=== PATIENT | male | born 1960 | race Caucasian/White ===

== ENCOUNTER 2017-03-23 12:51 | Inpatient (IN) ==
--- NOTE | 2017-03-23 13:42 | EKG Report ---
Stationary ECG Study [facility] Test Date: 03/23/2017 1:42:14 PM Pat Name: HEATHER YORK Department: Room: Gender: M [employer]: : 1960 Requested by: Hector Vogel Order Number: [id number] Reading MD: GRETCHEN OHARA Intervals [place] Rate: 79 P: 999 WI: 0 QRS: 263 QRSD: 161 T: 40 QT: 418 QTc: 453 Interpretive Statements ATRIAL FIBRILLATION WITH ABERRANT CONDUCTION OR VENTRICULAR PREMATURE COMPLEXES RIGHT BUNDLE BRANCH BLOCK INFERIOR MYOCARDIAL INFARCTION, POSSIBLY ACUTE ANTEROLATERAL MYOCARDIAL INFARCTION, OF INDETERMINATE AGE Electronically Signed On 03-25-17 21:33:19 CDT by GRETCHEN OHARA [email or web address]
[2017-03-23 13:56] LABS: ABG Base Excess 1.2 MMOL/L (-2.5-2.5); ABG HCO3 25.5 MMOL/L (20-26); ABG Oxygen Saturation 97.3 % (95-100); ABG PCO2 46.2 MM HG (35-48); ABG PH 7.378 (7.35-7.45); ABG PO2 89.8 MM HG (80-95); ABG TCO2 22.4 MMOL/L (23-27); Allen Test Positive
[2017-03-23 14:01] LABS: Basophils % 0.5 % (0.0-0.8); Eosinophils # 0.1 10*3/uL (0.0-0.87); Eosinophils % 1.4 % (0.00-10.9); Hematocrit 51.8 VOL% (42.0-52.0); Hemoglobin 17.5 GM/DL (14.0-18.0); Immature Granulocytes % 0.4 %; Immature Granulocytes Absolute 0.02 #; Lymphocytes # 1.1 10*3/uL (1.4-4.0); Lymphocytes % 19.1 % (21.2-54.2); Mean Corpuscular HGB Conc 33.8 GM/DL (32-36); Mean Corpuscular Hemoglobin 31 PG (27-34); Mean Platelet Volume 10.4 FL (9.6-12.0); Monocytes # 0.4 10*3/uL (0.11-0.8); Monocytes % 7.4 % (1.7-12.7); Neutrophils # 4.1 10*3/uL (1.4-7.4); Neutrophils % 71.2 % (38.7-73.9); Platelet Count 153 T/CUMM (130-400); Red Blood Count 5.69 MC/CUMM (3.8-5.5); Red Cell Distribution Width 14.9 % (9.3-17.3); White Blood Count 5.7 T/CUMM (4-12)
[2017-03-23 14:12] LABS: INR 1.3; PT Patient Result 14.2 SECS; Partial Thromboplastin Time 32.7 SECS (0-40)
[2017-03-23 14:21] LABS: Albumin 2.8 G/DL (3.4-5.0); Bilirubin,Total 1.4 MG/DL (0.2-1.0); Calcium 8.7 MG/DL (8.5-10.1); Osmolality,Calculated 278.8 MOS/KG (273-304); Total Protein 6.8 G/DL (6.4-8.3)
--- NOTE | 2017-03-23 14:30 | XRay Report ---
Referring Physician: Hector Vogel Exam: XR chest 1V portable Date: March 23, 2017 at 1:45 PM Reason: Shortness of breath Comparison: None Findings: The cardiac silhouette is mildly enlarged. The interstitial markings are diffusely prominent, and there are scattered opacities within both lower lung zones, mainly on the right. This is concerning for pulmonary edema and atelectasis, but pneumonia is not excluded. Follow-up is recommended to confirm resolution since the opacities in the right infrahilar region have a rounded appearance. No pneumothorax is identified, but there is mild right pleural fluid. No acute osseous process is seen. Impression: 1. Mild cardiomegaly. 2. The interstitial markings are prominent bilaterally, and there are scattered opacities within both lower lung zones, mainly on the right. This is concerning for pulmonary edema and atelectasis, but there could also be pneumonia. Follow-up is recommended to confirm resolution since the opacities in the right infrahilar region have a rounded appearance. 3. Mild right pleural fluid. PROCEDURE INTERPRETED AT [facility] DEPARTMENT OF RADIOLOGY Final Report Signed by: Dr. Citlaly Ruano
[2017-03-23 14:36] LABS: Troponin I Only 0.069 NG/ML (0.00-0.045)
--- NOTE | 2017-03-23 15:05 | Emergency Department Note ---
Viet Pedraza Brooke, am scribing for, and in the presence of, Hector Vogel Jr., MD 13:21. Lela Pedraza Marvin Jr., MD, personally performed the services described in this documentation, ascribed by Eden Llanos in my presence, and it is both accurate and complete . Arrival - Arrival Chief Complaint: Shortness of Breath ED Nursing Triage Note: pt had a blood sugar of 40 this am and o2 sats in the 80s. pt now has bs of 141 Mode of Arrival: Stretcher Limitations: No Limitations Source: Patient, Family (Brother and [id number]), EMS, Old Records Reviewed ( Patient says he has a history of chronic lung disease and is not on oxygen. I searched for but could not find any old records.), RN Notes Reviewed Time Seen by Provider: 03/23/17 13:12 - History of Present Illness HPI Narrative: Patient is a 57 year old male who presents to the ED with c/o generalized weakness due to low blood sugar. He says he drank a coke and ate a candy bar because he could tell it was his sugar. Patient says he was feeling so bad that he called EMS. When they arrived, he said they took his blood sugar and it was 45. He says EMS did give him fluids. Upon arrival, his ED was 141. Patient says he has been having problems, for the past month, with his blood sugar dropping. Family confirms that his blood sugar has been a problem. He does not have a local doctor that he follows up with. Patient has history of CHF and says his chest is currently tight. He denies having any shortness of breath. Patient also has PMHx of HTN and NIDDM. Allergies/Adverse Reactions: Allergies Allergy/AdvReac Type Severity Reaction Status Date / Time Sulfa (Sulfonamide Allergy Unknown/Unable Verified 03/23/17 13:03 Antibiotics) to obtain Review of System - Review of System 12 point system: reviewed and no additional remarkable complaints except as stated - Review of System Constitutional: Absent: fever Respiratory: Absent: respiratory distress Cardiovascular: Present: chest pain (tight) Skin: Absent: rash Neurological: Present: weakness (generalized) Endocrine: Present: other (hypoglycemia) Medical,Surgical,& Family Hx - Medical History Cardio: History of: CHF, Hypertension Endocrine: History of: Diabetes Mellitus (NIDDM) - Social History Smoking Status: Never smoker Frequency of Alcohol Use: None Type of Drug Use: None Exam Physical Examination: General: Well-developed well-nourished, no apparent distress. Noted vital signs including a pulse ox of 89% while patient is on oxygen. Head: Normocephalic, atraumatic. Eyes: PERRLA, EOMI. Nose: No obvious acute deformities or discharge. Mouth: No obvious acute injury. Neck: Full range of motion without obvious pain. No midline tender to palpation. Lymphatic: no significant lymphadenopathy noted. Lungs: Clear to auscultation bilaterally, normal and equal air movement bilaterally, no obvious rales or wheezing. Heart: regular rate and rhythm, no obvious mummers. Abdomen: Soft nontender, nondistended, normal active bowel sounds. Skin: Skin erythema consistent with chronic peripheral vascular disease on left leg. Musculoskeletal: No gross deformities. Right BKA noted Neurological: No focal findings, cranial nerves II through XII grossly normal. Psychiatric: Appropriate mood.. : Deferred Vital Signs: Vital Signs Temperature 97.2 F L 03/23/17 12:58 Pulse Rate 76 03/23/17 14:30 Respiratory Rate 22 03/23/17 14:30 Blood Pressure 157/101 03/23/17 14:30 O2 Sat by Pulse Oximetry 99 03/23/17 14:30 Course Course Narrative: Differential diagnosis, hypoglycemia secondary to not eating this morning and still taking insulin. Patient said he only had one glass of orange juice this morning. The hypoxemia is more concerning. Patient says he has a history of chronic lung disease and his O2 sat is usually in the low 90s. He has never been on home oxygen. He lives in [place] and most of the workup has been done there. - Reevaluation(s) Reevaluation #1: Troponin is slightly elevated, 0.069. I called Dr. Murguia back and explained the whole scenario and he says he feels this is probably incidental. He would recommend admitting to the hospitalist and consult him. I then call the hospitalist and they accept admission. Time: 14:55 Results - Labs CBC & BMP: 03/23/17 13:37 03/23/17 13:37 Lab Results: I have reviewed the patients labs Labs: Laboratory Tests 03/23/17 03/23/17 13:37 13:43 WBC 5.7 RBC 5.69 H Hgb 17.5 Hct 51.8 MCV 91.0 MCH 31 MCHC 33.8 RDW 14.9 Plt Count 153 MPV 10.4 Neut % (Auto) 71.2 Lymph % (Auto) 19.1 L Moca % (Auto) 7.4 Eos % (Auto) 1.4 Baso % (Auto) 0.5 Neut # (Auto) 4.1 Lymph # (Auto) 1.1 L Moca # (Auto) 0.4 Eos # (Auto) 0.1 Baso # (Auto) 0.0 Immature Gran % 0.4 Nucleated RBC % 0.0 Immature Gran # 0.02 Nucleated RBCs # 0.00 ABG pH 7.378 ABG pCO2 46.2 ABG pO2 89.8 ABG HCO3 25.5 ABG Total CO2 22.4 L ABG O2 Saturation 97.3 ABG Base Excess 1.2 FiO2 28.00 Laboratory Tests 03/23/17 13:37 INR 1.3 PT Patient/Control Mix 14.2 Circ Anticoag PTT 32.7 Laboratory Tests 03/23/17 13:37 Sodium 137 Potassium 4.0 Chloride 98 Carbon Dioxide 31 Anion Gap 12.0 BUN 29 H Creatinine 1.70 H GFR Calculation 60 BUN/Creatinine Ratio 17.00 Glucose 90 Calculated Osmolality 278.8 Calcium 8.7 Total Bilirubin 1.40 H AST 22 ALT 17 Alkaline Phosphatase 160 H Troponin I 0.069 H Total Protein 6.8 Albumin 2.8 L Globulin 4.0 H Albumin/Globulin Ratio 0.7 L - EKG EKG results: interpreted by [facility] (Heart rate 79, wide-complex QRS complex consistent with right bundle branch block, elevated AST levels in V4 5 and 6. However the right bundle branch block makes is difficult to interpret. No obvious reciprocal ST depressions. I did text a copy of this to Dr. Murguia who agrees with this interpretation. He feels that it is not an acute UT unless patient is very symptomatic. I told him the signs and symptoms of this patient and he agrees acute UT is very low probability.) - Diagnostic Findings Procedure: Chest x-ray: report reviewed by me, image reviewed by me (1. Mild cardiomegaly. 2. The interstitial markings are prominent bilaterally, and there are scattered opacities within both lower lung zones, mainly on the right. This is concerning for pulmonary edema and atelectasis, but there could be pneumonia. Follow up is recommended to confirm resolution since the opacities in the right infrahilar region have a rounded appearance. 3. Mild right pleural fluid.) Disposition Clinical Impression: Hypoglycemia, Diabetes, Congestive heart failure, History of hypertension, Elevated troponin, Hypoxemia, Chronic lung disease Case discussed with: patient, patient's family Disposition: Still a Patient Condition: Stable Time of Disposition: 15:04
[2017-03-23] MEDS ORDERED: DOCUSATE SODIUM 100 MG CAPSULE PO PRN (15:54)
[2017-03-23] MEDS ORDERED: GLUCAGON 1 MG VIAL IM PRN ×2 (15:54→15:56)
[2017-03-23] MEDS ORDERED: ONDANSETRON 4 MG/2 ML VIAL IV PRN (15:54)
[2017-03-23] MEDS ORDERED: DEXTROSE 50% 25 GM/50 ML VIAL IV PRN ×2 (15:54→15:56)
[2017-03-23] MEDS ORDERED: ACETAMINOPHEN 325 MG TABLET PO PRN (15:54)
--- NOTE | 2017-03-23 16:26 | Hospitalist History & Physical ---
Assessment and Plan (1) Congestive heart failure Status: Acute Assessment and plan: We will gently diurese and obtain BNP. We will obtain ECHO in AM. Recheck labs in AM. Current Visit: Yes (2) Diabetes Status: Acute Assessment and plan: Will obtain HGA1C, start accuhecks with ss coverage, and consult diabetic educator. Current Visit: Yes (3) Elevated troponin Status: Acute Assessment and plan: Will obtain serial troponins; if positive will consult cardiology. Will obtain echo and lipid panel in AM. Current Visit: Yes History of Present Illness Chief complaint: Chest pain/shortness of breath/hypoglycemia History of present illness: This a very poor and unfortunate 57 year old male that presented to the ED at [facility] per EMS for evaluation of shortness of breath, chest pain, and hypoglycemia. The patient has a rather impressive medical history of congestive heart failure, diabetes mellitus, and chronic lung disease. He reports an onset generalized weakness that he attributed to a "low blood sugar". He ate a candy bar and drank a soft drink with no improvement. He proceeded to call EMS for further evaluation. Upon EMS arrival, his blood sugar was noted at 40. He was given fluids and IV dextrose; and his blood sugar improved to 141 at the time of arrival. The patient reports problems similar in nature in the past and reports no current PCP. At the time of ED presentation; labs were obtained which reported a BUN at 29, creatinine at 1.70, bilirubin at 1.48, alkaline phosphate 1.60. Cardiac enzymes were obtained which were mildly elevated at 0.069. EKG was postitive for right bundle branch block with elevated AST levels in V4 5 and 6. Cardiology was contacted for review and they determined that the probability for acute PA was low since the patient was asymptomatic. Chest radiograph was obtained; which was significant for mild cardiomegaly; The interstitial markings are prominent bilaterally, scattered opacities within both lower lung zones, mainly on the right. This raised concern for pulmonary edema and atelectasis, but there could be pneumonia and mild right pleural fluid. After discussion with both Dr. Vogel and Dr. Rm, the patient will be admitted to the hospitalist service. Home Medications Medication Instructions Recorded Confirmed Type Aspirin EC Tab 81 mg PO DAILY 03/23/17 03/23/17 History Carvedilol 12.5 mg PO BID 03/23/17 03/23/17 History Digoxin Tab [Lanoxin Tab] 0.25 mg PO SUMOWETHFRSA 03/23/17 03/23/17 History Digoxin Tab [Lanoxin Tab] 0.5 mg PO TU 03/23/17 03/23/17 History Furosemide Tab [Lasix Tab] 80 mg PO BID DIURETIC 03/23/17 03/23/17 History Insulin Aspart Prot/Insuln Asp 42 unit SUBCUT 0800,1600 03/23/17 03/23/17 History [NovoLOG Mix 70-30 FlexPen] Allergies Allergy/AdvReac Type Severity Reaction Status Date / Time Sulfa (Sulfonamide Allergy Unknown/Unable Verified 03/23/17 13:03 Antibiotics) to obtain Medical,Surgical,& Family Hx - Medical History Cardio: History of: CHF, Hypertension Endocrine: History of: Diabetes Mellitus (NIDDM) - Social History Smoking Status: Never smoker Frequency of Alcohol Use: None Type of Drug Use: None 12 point system: reviewed and no additional remarkable complaints except as stated Exam - Constitutional Vitals: Period Temp Pulse Resp BP Sys/Jane Pulse Ox Last 24 Hr 97.2 F-97.2 F 73-94 10-22 117-157/78-101 89-100 General appearance: normal weight, no acute distress - Head Head exam: Present: normal inspection, normocephalic, atraumatic - Eye Eye exam: Present: EOMI. Absent: conjunctival injection, nystagmus Pupils: Present: YU, normal accommodation - ENT ENT exam: Present: normal exam, normal external ear exam, normal oropharynx - Neck Neck exam: Present: normal inspection. Absent: lymphadenopathy, meningismus, tenderness, thyromegaly - Respiratory Respiratory exam: Present: decreased breath sounds. Absent: rales, rhonchi, stridor, wheezes - Cardiovascular Cardiovascular exam: Present: bradycardia, other (R BBB). Absent: carotid bruit , gallop, JVD, rubs, systolic murmur - GI/Abdominal GI/Abdominal exam: Present: normal bowel sounds, soft. Absent: distended, guarding, tenderness - Extremities Exam Extremities exam: Present: other (RBKA) - Neurological Exam Neurological exam: Present: alert, oriented X3, CN II-XII intact - Psychiatric Psychiatric exam: Present: normal affect, normal mood - Skin Skin exam: Present: normal color, warm, dry Results - Labs CBC & BMP: 05/07/17 13:37 03/23/17 13:37 Lab Results: I have reviewed the past 24 hour labs
[2017-03-23] MEDS: INSULIN REGULAR 100 UNIT/ML SUBCUT SCH (16:30)
[2017-03-23 16:47] LABS: Risk Ratio 2.38; VLDL CHOLESTEROL 12.2 MG/DL
[2017-03-23] MEDS ORDERED: LEVOFLOXACIN 750 MG TABLET PO SCH (17:30)
[2017-03-23] MEDS ORDERED: FUROSEMIDE 40 MG/4 ML VIAL IV STA (18:41)
[2017-03-23] MEDS ORDERED: PERMETHRIN 1% LOTION 59 ML BOTTLE TOP ONE (18:41)
[2017-03-23] MEDS: ALBUTEROL/IPRATROPIUM 3 ML NEB RESP TX SCH (19:40)
[2017-03-23] MEDS: CARVEDILOL 12.5 MG TABLET PO SCH (21:32)
[2017-03-23] MEDS: DIGOXIN 0.25 MG TABLET PO SCH (21:32)
[2017-03-23] MEDS: POTASSIUM CHLORIDE 20 MEQ TABLET PO SCH (21:33)
[2017-03-24] MEDS: ALBUTEROL/IPRATROPIUM 3 ML NEB RESP TX SCH ×4 (01:26→19:36)
[2017-03-24] MEDS: INSULIN REGULAR 100 UNIT/ML SUBCUT SCH ×5 (03:59→21:04)
[2017-03-24 06:06] LABS: Basophils % 0.7 % (0.0-0.8); Eosinophils # 0.1 10*3/uL (0.0-0.87); Eosinophils % 1.4 % (0.00-10.9); Hematocrit 50.6 VOL% (42.0-52.0); Hemoglobin 17.1 GM/DL (14.0-18.0); Immature Granulocytes % 0.4 %; Immature Granulocytes Absolute 0.02 #; Lymphocytes # 1.8 10*3/uL (1.4-4.0); Lymphocytes % 31.7 % (21.2-54.2); Mean Corpuscular HGB Conc 33.8 GM/DL (32-36); Mean Corpuscular Hemoglobin 30 PG (27-34); Mean Corpuscular Volume 88.9 FL (87-102); Mean Platelet Volume 10.4 FL (9.6-12.0); Monocytes # 0.5 10*3/uL (0.11-0.8); Monocytes % 8.6 % (1.7-12.7); Neutrophils # 3.2 10*3/uL (1.4-7.4); Neutrophils % 57.2 % (38.7-73.9); Platelet Count 148 T/CUMM (130-400); Red Blood Count 5.69 MC/CUMM (3.8-5.5); Red Cell Distribution Width 14.8 % (9.3-17.3); White Blood Count 5.6 T/CUMM (4-12)
[2017-03-24 06:44] LABS: Albumin 2.7 G/DL (3.4-5.0); Bilirubin,Total 1.5 MG/DL (0.2-1.0); Calcium 8.4 MG/DL (8.5-10.1); Osmolality,Calculated 280.5 MOS/KG (273-304); Potassium 4.1 MMOL/L (3.5-5.1); Risk Ratio 2.5; Thyroid Stimulating Hormone 2.37 uIU/ml (0.358-3.74); Total Protein 6.2 G/DL (6.4-8.3); VLDL CHOLESTEROL 16.4 MG/DL
--- NOTE | 2017-03-24 08:21 | XRay Report ---
Portable chest Date: 03/24/2017 Clinical history: Shortness of breath Comparison: 03/23/2017 Technique: Portable AP sitting chest Findings: Stable cardiomegaly with prominent pulmonary vasculature. Progressive diffuse parenchymal findings especially in the right lung with residual atelectasis and small pleural effusions. Stable mediastinum and osseous structures. Impression: Progressive pulmonary edema especially in the right lung with residual atelectasis and small pleural effusions. Prominent pulmonary vasculature which may account for the hilar prominence but continued follow-up chest x-ray is recommended. PROCEDURE INTERPRETED AT [facility] DEPARTMENT OF RADIOLOGY Final Report Signed by: Dr. Jacklyn Pandey
[2017-03-24] MEDS: ASPIRIN EC 81 MG TABLET PO SCH (08:54)
[2017-03-24] MEDS: CARVEDILOL 12.5 MG TABLET PO SCH ×2 (08:54→21:06)
[2017-03-24] MEDS: POTASSIUM CHLORIDE 20 MEQ TABLET PO SCH ×2 (08:54→21:06)
[2017-03-24] MEDS: FUROSEMIDE 40 MG/4 ML VIAL IV SCH ×2 (08:54→16:30)
[2017-03-24] MEDS: PANTOPRAZOLE 40 MG TABLET PO SCH (08:54)
[2017-03-24] MEDS: INSULIN NPH/REGULAR 70/30 100 UNIT/ML SUBCUT SCH ×2 (09:00→16:30)
--- NOTE | 2017-03-24 11:22 | Hospitalist Progress Note ---
Assessment and Plan (1) Dermatitis Status: Acute Assessment and plan: Previous evaluated as a suspecting scabies in this gentleman. I will therefore obtain skin scrapings for that. He is already receives permethrin medical treatment however if this turns out to be scabies with his chronicity he would do best given ivermectin. I recommend consulting infectious disease at that point. Current Visit: Yes (2) Cellulitis of left lower extremity Status: Acute Current Visit: Yes (3) Hypoglycemia Status: Acute Assessment and plan: He is feeling well at this point. Continue to follow her point of care blood sugar checks; gentleman is a diabetic continue home medication. Current Visit: Yes (4) Congestive heart failure Status: Acute Assessment and plan: Obtain an echocardiogram to evaluate left ventricular function with chamber stretches valves and pericardial space as well as wall motion. Obtain serial troponins and CPK total of CPK-MB is ordered. Patient should be consulted to cardiology. Current Visit: Yes (5) Elevated troponin Status: Acute Current Visit: Yes Hospitalist: Subjective Interval history: Patient has been seen interviewed and examined and chart has been reviewed. This is my first encounter with Mr Garner; admitted by my colleagues overnight with acute decompensation of congestive heart failure shortness of breath and edema on chest x-ray elevated initial troponin but this was not pursued and a chronic exanthem with a lot of scratching thought to be scabies that has already been started to be treated with topicals but never evaluated. The floor does have the patient on isolation and instructed him to do scabies skin scrapings for verification. If this comes out to be positive this gentleman is to be given ivermectin appropriately. He also has chronic leg edema with a left lower extremity also on anterior aspect below the knee multiple other furuncles noted on the legs very poor general hygiene with a history of below the knee amputation on the right side. Exam - Constitutional Vitals: Period Temp Pulse Resp BP Sys/Jane Pulse Ox Last 24 Hr 96.9 F-97.9 F 62-116 18-25 132-174/78-109 9-98 General appearance: over weight - Head Head exam: Present: normocephalic, atraumatic - Eye Eye exam: Present: EOMI Pupils: Present: YU - ENT ENT exam: Present: normal exam, normal oropharynx - Neck Neck exam: Present: other (There is supple neck no adenopathy midline trachea no thyromegaly) - Respiratory Respiratory exam: Present: clear to auscultation bilaterally - Cardiovascular Cardiovascular exam: Present: irregular rhythm, other (EKG shows atrial fibrillation with admixed ventricular premature complexes there is a suggestion of left bundle branch block) - GI/Abdominal GI/Abdominal exam: Present: normal bowel sounds, soft - Extremities Exam Extremities exam: Present: full ROM, other (Right-sided BKA has an ulcer on the clark on the left side and the multiple pustules on the legs a lot of scratches on the back especially around the neck) - Back Exam Back exam: Present: other (As above) - Neurological Exam Neurological exam: Present: alert, oriented X3, CN II-XII intact - Psychiatric Psychiatric exam: Present: normal affect, normal mood - Skin Skin exam: Present: normal color, warm, dry Results - Labs CBC & BMP: 03/24/17 05:29 03/24/17 05:29 Lab Results: I have reviewed the past 24 hour labs
[2017-03-24 12:26] LABS: Troponin I Only 0.068 NG/ML (0.00-0.045)
[2017-03-24] MEDS: CEFTAROLINE 600 MG in SODIUM CHLORIDE 0.9% 100 ML IV SCH (13:23)
--- NOTE | 2017-03-24 17:58 | ECHO Report ---
Terence Garner Exam Date: 03/24/2017 07:40 Referring Physician: Technologist: Estelle Solorzano RDCS Age: 57 Ht (in): 74 Wt (lb): 250 Gender: M Exam Location: [facility], [place] Echo Indications: Chest pain, unspecified, Hypoglycemia, Edema, unspecified, IDDM, Elevated troponin, Acute on chronic systolic (congestive) heart failure BP: 132 / 78 HR: 80 Rhythm: Atrial fibrillation Technical Quality: IMPRESSIONS 1. Left ventricle is normal size with ejection fraction 35% and global hypokinesis. There is moderate concentric left ventricular hypertrophy. 2. Right ventricle is normal size with slight global hypokinesis. 3. Mildly dilated right atrium and left atrium. 4. Mitral valve is somewhat thickened sclerotic with some annular calcification and trace to mild regurgitation. 5. Aortic valve is sclerotic slightly calcified but without stenosis or regurgitation. 6. Trace to mild pulmonic insufficiency. 7. Trace to mild tricuspid regurgitation. 8. Moderate to severely elevated right-sided pressures. MEASUREMENTS (Male / Female) Normal Values 2D ECHO LV Diastolic Diameter PLAX 3.4 cm 4.2 - 5.9 / 3.9 - 5.3 cm LV Systolic Diameter PLAX 3.0 cm LV Fractional Shortening PLAX 12.3 % IVS Diastolic Thickness 1.7 cm 0.6 - 1.0 / 0.6 - 0.9 cm LVPW Diastolic Thickness 1.7 cm 0.6 - 1.0 / 0.6 - 0.9 cm RV Internal Dim ED PLAX 4.1 cm Aortic Root Diameter 3.8 cm LA Systolic Diameter LX 5.5 cm 3.0 - 4.0 / 2.7 - 3.8 cm DOPPLER TR Peak Velocity 354.0 cm/s TR Peak Gradient 50.1 mmHg FINDINGS Left Ventricle Normal left ventricular cavity size. Moderate left ventricular hypertrophy. Left ventricular ejection fraction is estimated at 35 %. Right Ventricle The right ventricle is normal in size and with slight global hypokinesis. Right Atrium Moderately increased right atrial size. Left Atrium Moderately increased left atrial size. Mitral Valve Thickened mitral valve. Mild mitral annular calcification. Trace to mild mitral valve regurgitation. Aortic Valve Aortic valve is grossly a tricuspid structure with localized calcification and diffuse sclerosis without stenosis or regurgitation. Tricuspid Valve Morphologically normal tricuspid valve. Trace to mild tricuspid valve regurgitation. Tricuspid regurgitation velocities suggest a PAP of 60 mmHg. Pulmonic Valve Morphologically normal pulmonic valve. Trace to mild pulmonary valve regurgitation. Pericardium Normal pericardium without effusion. Aorta Normal ascending aorta dimension. Bubba Barron MD (Electronically Signed) Final Date: 24 Mar 2017 17:57
[2017-03-24] MEDS: DIGOXIN 0.25 MG TABLET PO SCH (18:18)
[2017-03-25] MEDS: ALBUTEROL/IPRATROPIUM 3 ML NEB RESP TX SCH ×4 (00:19→19:10)
[2017-03-25] MEDS: CEFTAROLINE 600 MG in SODIUM CHLORIDE 0.9% 100 ML IV SCH ×3 (01:31→23:38)
--- NOTE | 2017-03-25 08:42 | Hospitalist Progress Note ---
Hospitalist: Subjective Interval history: + dry cough. No fever. No cp. SOB improving. He thinks that the breathing treatments have helped the most. Still has swelling in legs and left leg redness is still there. Tolerating po. No abd pain. Last BM within 24 hours. No diarrhea. Exam - Constitutional Vitals: Period Temp Pulse Resp BP Sys/Jane Pulse Ox Last 24 Hr 97.1 F-99.7 F 69-88 17-20 126-153/82-99 88-100 Exam: A and Ox 3 RRR distant heart tones no obvious murmur appreciated Diminished lung sounds. Fine rales at bases. Nonlabored Soft, NT, proturbanant, +BS Warm. +cyanosis at tips no clubbing. +2-+3 Edema of lower extremities s/p R AKA Neuro: nonfocal Results - Labs CBC & BMP: 03/25/17 08:56 03/25/17 08:56 - Impressions *Acute on Chronic systolic and diastolic CHF exacerbation (EF35%) - ECHO reviewed - On IV Lasix and Coreg. No ACEi or ARB due to elevated creatinine. Strict I and O. Daily weights. Serial RFP and BNP. Replace lytes as needed. CXR in am. May need to consider Entresto and Aldactone pending creatinine. Will defer to cardiology - Cardiology consulted. * Elevated troponin - trending down. Cards to see. *Severe pulmonary hypertension (chronic) - probably would benefit from an outpatient sleep study and PFTs *Acute Lower extremity cellulitis with stage 2-3 DM ulcer on LLE - On Teflaro. Monitor. Wound care following. *DM- insulin dependent with hypoglycemia - Will decrease scheduled insulin to 15U BID. Cont I.S.S. and accuchecks ac,hs. Change to 1800 ADA diet DVT prophylaxis- Add Lovenox renally doses. D/W pt and nurse and all questions answered.
[2017-03-25] MEDS ORDERED: ENOXAPARIN 40 MG/0.4 ML SYRINGE SUBCUT SCH (09:00)
[2017-03-25] MEDS: INSULIN REGULAR 100 UNIT/ML SUBCUT SCH ×4 (09:02→20:52)
[2017-03-25 09:15] LABS: Basophils # 0.1 10*3/uL (0.0-0.2); Basophils % 1.1 % (0.0-0.8); Eosinophils # 0.2 10*3/uL (0.0-0.87); Eosinophils % 3.4 % (0.00-10.9); Hematocrit 51.9 VOL% (42.0-52.0); Hemoglobin 17.5 GM/DL (14.0-18.0); Immature Granulocytes % 0.2 %; Immature Granulocytes Absolute 0.01 #; Lymphocytes # 1.6 10*3/uL (1.4-4.0); Lymphocytes % 34.2 % (21.2-54.2); Mean Corpuscular HGB Conc 33.7 GM/DL (32-36); Mean Corpuscular Hemoglobin 31 PG (27-34); Mean Corpuscular Volume 91.1 FL (87-102); Monocytes # 0.4 10*3/uL (0.11-0.8); Monocytes % 9.4 % (1.7-12.7); Neutrophils # 2.4 10*3/uL (1.4-7.4); Neutrophils % 51.7 % (38.7-73.9); Platelet Count 136 T/CUMM (130-400); Red Cell Distribution Width 15.2 % (9.3-17.3); White Blood Count 4.7 T/CUMM (4-12)
[2017-03-25] MEDS: ASPIRIN EC 81 MG TABLET PO SCH (09:28)
[2017-03-25] MEDS: FUROSEMIDE 40 MG/4 ML VIAL IV SCH ×2 (09:28→17:08)
[2017-03-25] MEDS: PANTOPRAZOLE 40 MG TABLET PO SCH (09:28)
[2017-03-25] MEDS: CARVEDILOL 12.5 MG TABLET PO SCH ×2 (09:28→20:52)
[2017-03-25 09:46] LABS: Calcium 9.1 MG/DL (8.5-10.1); Magnesium 2.1 MG/DL (1.8-2.4); Osmolality,Calculated 284.4 MOS/KG (273-304); Potassium 4.2 MMOL/L (3.5-5.1)
[2017-03-25] MEDS: INSULIN NPH/REGULAR 70/30 100 UNIT/ML SUBCUT SCH ×2 (11:08→17:08)
--- NOTE | 2017-03-25 12:18 | Cardiology Consult Note ---
<Janki Negron E - Last Filed: 03/25/17 12:29> Assessment and Plan - Time spent with patient Time spent with patient: Greater than 30 minutes (1) Cardiomyopathy Status: Acute Assessment and plan: SEE PLAN OF CARE LISTED BELOW Current Visit: Yes (2) Acute renal insufficiency Status: Acute Assessment and plan: SEE PLAN OF CARE LISTED BELOW Current Visit: Yes (3) Scabies Status: Acute Assessment and plan: SEE PLAN OF CARE LISTED BELOW Current Visit: Yes (4) Diabetic ulcer Status: Acute Assessment and plan: SEE PLAN OF CARE LISTED BELOW Current Visit: Yes (5) Pulmonary hypertension Status: Acute Assessment and plan: SEE PLAN OF CARE LISTED BELOW Current Visit: Yes (6) Community acquired pneumonia Status: Acute Assessment and plan: SEE PLAN OF CARE LISTED BELOW Current Visit: Yes (7) Atrial fibrillation Status: Acute Assessment and plan: SEE PLAN OF CARE LISTED BELOW Current Visit: Yes (8) Diabetes Status: Chronic Assessment and plan: SEE PLAN OF CARE LISTED BELOW Current Visit: Yes (9) Congestive heart failure Status: Acute Assessment and plan: SEE PLAN OF CARE LISTED BELOW Current Visit: Yes (10) History of hypertension Status: Chronic Assessment and plan: SEE PLAN OF CARE LISTED BELOW Current Visit: Yes (11) Elevated troponin Status: Acute Assessment and plan: SEE PLAN OF CARE LISTED BELOW Current Visit: Yes (12) Chronic lung disease Status: Chronic Assessment and plan: SEE PLAN OF CARE LISTED BELOW Current Visit: Yes (13) Cellulitis of left lower extremity Status: Acute Assessment and plan: SEE PLAN OF CARE LISTED BELOW Current Visit: Yes History of Present Illness - Data of Consult Patient: new to practice Consult date: 03/25/17 Requesting Physician: Carin Chang - Consult Narrative Reason for consult: elevated troponin, atrial fib, RBBB History of present illness: 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 Garner, 57WM, is new to cardiology. Risk factors include: hypertension, diabetes, obesity and sedentary lifestyle. History of cellulitis, status post right below-knee amputation 2002 due to diabetic ulcer. Presented to the emergency department via EMS March 23, 2017 after experiencing severe weakness, chest pain and shortness of breath. He is a long-standing history of difficult to control diabetes. Patient felt as if his sugar was dropping therefor he ate a candy bar and drank a soft drink with no improvement. When he called EMS for further evaluation his blood sugar was noted to be 40. He was given IV fluids, IV dextrose and his blood sugar improved to 141 at the time of arrival to [facility] ER. He denies having chest pain during the "weak spell" but does acknowledge he was diaphoretic with SOB. This resolved with improvement of blood glucose levels. He is very sedentary and does not recognize a change in his exercise tolerance because he "took to my bed" approximately 1 year ago after his mother . Upon arrival to the emergency department, he was noted to have atrial fibrillation. Cardiac biomarkers were drawn and noted is a troponin of 0.068, CK-MB of 4.9, CPK within normal limits. His proBNP was noted to be > 1000 on arrival. Creatinine has increased overnight from 1.5-1.8. He has undergone an echocardiogram which reveals an ejection fraction of 35%, global hypokinesis, PAP 60 mmHg (right ventricle normal size with slight global hypokinesis). He is currently being treated for acute CHF and probable community-acquired pneumonia. 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 He tells me he underwent stress testing at that time and received favorable results. He reports several hospitalizations of congestive heart failure but has never been told he has a weak heart. He has not seen a model engine mechanic in over 10 years. Patient reports that he has never formally been diagnosed with atrial fibrillation but did note that he had "something wrong with my heart" and believes it may have been an irregular heart rhythm. He has never been on a formal anticoagulant. He does have a history of true anaphylaxis after receiving IVP dye with CT approximately 25+ years ago. Patient is currently being treated for diabetic ulcers of his left lower extremity, cellulitis, scabies. Patient is taking aspirin 81 mg orally daily, Lovenox 40 mg subcu every 24 hours , beta blockade and digoxin. Avoiding LAMONT inhibitors or ARB due to fear of worsening his renal insufficiency. I will further discuss with Dr. Winkler additional cardiac workup as needed. Patient may benefit from cardiac catheterization at some point and will need to be premedicated if so. Will need to start NOAC prior to discharge and may benefit from increased dose of Lovenox today until exact plan of (cardiac) care identified. CHADVASC score 3. ASSESSMENT/PLAN: 1. ELEVATED TROPONIN - will add additional lab draws and monitor accordingly. 2. ACUTE CHF (POSSIBLY ACUTE ON CHRONIC), SECONDARY TO SYSTOLIC AND DIASTOLIC DYSFUNCTION, NYHA CLASS III - continue diuresing, betablocker. Holding LAMONT/ARB at this time due to fear of worsening renal insufficiency. 3. CARDIOMYOPATHY - Etiology unknown at this time. May benefit from eventual C. 4. HYPERTENSION - adequately controlled. 5. DIABETES - continue current plan of care. 6. EDEMA - rule out DVT with venous US. 7. ATRIAL FIBRILLATION - Suspect this is chronic though patient uncertain. No prior history of TIA or CVA. Anti-coag/NOAC prior to discharge. 8. DIABETIC WOUNDS - required right BKA several years ago. Fell and injured LLE recently, slow to heal areas. 9. ALLERGY TO IVP DYE AND SHELLFISH - anaphylaxis. Will need premedication should he undergo heart cath. 10. SCABIES - has received treatment during this hospitalization 11. PULMONARY HYPERTENSION - right ventricle remains normal size with slight global hypokinesis. 12. ACUTE RENAL INSUFFICIENCY, STAGE II - avoiding LAMONT/ARB at this time for fear of worsening creatinine. Daily monitoring. Will request daily weights as none have been recorded for two days. May be slightly overdiuresed and we will monitor. CC: Carin Chang MD - Home Medications and Allergies Home Medications: Home Medications Medication Instructions Recorded Confirmed Type Aspirin EC Tab 81 mg PO DAILY 03/23/17 03/23/17 History Carvedilol 12.5 mg PO BID 03/23/17 03/23/17 History Digoxin Tab [Lanoxin Tab] 0.25 mg PO SUMOWETHFRSA 03/23/17 03/23/17 History Digoxin Tab [Lanoxin Tab] 0.5 mg PO TU 03/23/17 03/23/17 History Furosemide Tab [Lasix Tab] 80 mg PO BID DIURETIC 03/23/17 03/23/17 History Insulin Aspart Prot/Insuln Asp 42 unit SUBCUT 0800,1600 03/23/17 03/23/17 History [NovoLOG Mix 70-30 FlexPen] Valsartan/Hydrochlorothiazide 1 each PO DAILY 03/25/17 03/25/17 History [Diovan Hct 320-12.5 mg Tab] Allergies/Adverse Reactions: Allergies Allergy/AdvReac Type Severity Reaction Status Date / Time Iodinated Contrast Media - Allergy ANAPHYLAXIS Verified 03/25/17 09:35 Oral and Seafood Allergy ANAPHYLAXIS Verified 03/25/17 09:35 Shellfish Allergy ANAPHYLAXIS Verified 03/25/17 09:36 Sulfa (Sulfonamide Allergy Unknown/Unable Verified 03/23/17 13:03 Antibiotics) to obtain Review of systems: REVIEW OF SYSTEMS: - Constitutional Constitutional: Present: Fatigue. Absent: syncope, anorexia, night sweats - EENT Eyes: Absent: blurry vision, loss of vision, diplopia Ears: Absent: decreased hearing, ear pain, ear discharge - Cardiovascular Cardiovascular: Denies chest pain with exertion. Chronic edema lower extremities. Denies palpitations. Absent: chest pain with deep breath - Respiratory Respiratory: Present: DOVE, denies cough. Absent: wheezing, hemoptysis, change in phlegm color - Gastrointestinal Gastrointestinal: Denies constipation. Absent: abdominal pain, hematemesis, hematochezia, melena, change in bowel habits, nausea - Genitourinary Genitourinary: Absent: difficulty urinating, dysuria, urinary hesitancy, flank pain - Musculoskeletal Musculoskeletal: Present: back pain Absent: joint swelling, muscle cramps, muscle weakness - Neurological Neurological: Present: Poor gait without frequent falls. Absent: dizziness, hemiparesis - Psychiatric Psychiatric: Absent: anxiety, depression, difficulty concentrating - Endocrine Endocrine: Present: fatigue. Absent: cold intolerance, heat intolerance, polyuria, polyphagia, polydipsia - Hematologic/Lymphatic Hematologic/Lymphatic: Present: easy bruising. Absent: easy bleeding -Integumentary Integumentary: Absent: lesions, rashes, skin breakdown Medical,Surgical,& Family Hx - Medical History Cardio: History of: CHF, Hypertension, Cardiovascular Problems (chf) No history of: Cardiac Dysrhythmia, CAD, LA Neurology: No history of: Cerebrovascular Accident, Seizures, TIA Endocrine: History of: Diabetes Mellitus (NIDDM) Respiratory: History of: Respiratory Problems Gastrointestinal: No history of: Gastrointestinal Bleed Musculoskeletal: History of: Amputation Hematology: No history of: Bleeding Problems Other: History of: Skin Problems (dry skin) - Surgical History Abdominal Surgeries: Patient denies: Abdominal Surgery - Family History Family History: Reports;: Family Cancer (father), Family Diabetes (father), Family Hypertension (every body), Family Stroke (mother and grand mother) - Social History Smoking Status: Never smoker Have you smoked in the last 12 months: No Frequency of Alcohol Use: None Type of Drug Use: None Marital Status: Single Lives With:: Alone Functional capacity: uses cane/walker Physical Examination Vital Signs Temp Pulse Resp BP Pulse Ox 97.2 F L 94 H 20 117/78 89 L 03/23/17 12:58 03/23/17 12:58 03/23/17 12:58 03/23/17 12:58 03/23/17 12:58 General: [Appears well with no apparent distress.] [Pleasant and cooperative. ] [Appears comfortable.] HEENT: [PERRL, normocephalic, atraumatic. Mucous membranes moist. No jaundice noted. Poor dentition noted. Conjunctiva moist and clear, sclerae anicteric] Neck: No obvious JVD/HJR, no thyromegaly or lymphadenopathy noted. No carotid bruit appreciated Cardiac: [Irregularly irregular rhythm, controlled rate. [No murmur rub or gallop.] Lungs: [Clear to auscultation without accessory muscle use to assist the respiratory pattern.] Not requiring oxygen Abdomen: Soft, bowel sounds normoactive. Nontender and nondistended. No abdominal bruit or thrill noted. No masses noted. Musculoskeletal: No fluid collection. Decreased range of motion is noted. Extremities: No clubbing, cyanosis noted. [Left lower extremity 2-3+ edema with multiple areas of diabetic wounds. Difficult to palpate pulses left lower extremity. Right below the knee amputation noted. Upper extremity pulses 2+. Skin: Left lower extremity diabetic wounds noted. No other skin breakdown appreciated. Neuro: Awake, alert and oriented 3. Moves all extremities well without hemiparesis or paralysis. No essential tremor is appreciated. Result/EKG - Labs CBC & BMP: 03/25/17 08:56 03/25/17 08:56 Lab Results: I have reviewed the past 24 hour labs Labs: Laboratory Results - last 24 hr 03/24/17 03/24/17 03/24/17 11:29 16:25 19:35 WBC RBC Hgb Hct MCV MCH MCHC RDW Plt Count MPV Neut % (Auto) Lymph % (Auto) Ward % (Auto) Eos % (Auto) Baso % (Auto) Neut # (Auto) Lymph # (Auto) Ward # (Auto) Eos # (Auto) Baso # (Auto) Immature Gran % Nucleated RBC % Immature Gran # Nucleated RBCs # Sodium Potassium Chloride Carbon Dioxide Anion Gap BUN Creatinine GFR Calculation BUN/Creatinine Ratio Glucose POC Glucose 186 H 149 H Calculated Osmolality Calcium Phosphorus Magnesium Total Creatine Kinase 129 CK-MB (CK-2) 4.9 H Troponin I 0.068 H B-Natriuretic Peptide Albumin 03/25/17 03/25/17 03/25/17 07:40 08:05 08:56 WBC 4.7 RBC 5.70 H Hgb 17.5 Hct 51.9 MCV 91.1 MCH 31 MCHC 33.7 RDW 15.2 Plt Count 136 MPV 10.0 Neut % (Auto) 51.7 Lymph % (Auto) 34.2 Ward % (Auto) 9.4 Eos % (Auto) 3.4 Baso % (Auto) 1.1 H Neut # (Auto) 2.4 Lymph # (Auto) 1.6 Ward # (Auto) 0.4 Eos # (Auto) 0.2 Baso # (Auto) 0.1 Immature Gran % 0.2 Nucleated RBC % 0.0 Immature Gran # 0.01 Nucleated RBCs # 0.00 Sodium Potassium Chloride Carbon Dioxide Anion Gap BUN Creatinine GFR Calculation BUN/Creatinine Ratio Glucose POC Glucose 52 L 54 L Calculated Osmolality Calcium Phosphorus Magnesium Total Creatine Kinase CK-MB (CK-2) Troponin I B-Natriuretic Peptide Albumin 03/25/17 03/25/17 03/25/17 08:56 08:56 09:02 WBC RBC Hgb Hct MCV MCH MCHC RDW Plt Count MPV Neut % (Auto) Lymph % (Auto) Ward % (Auto) Eos % (Auto) Baso % (Auto) Neut # (Auto) Lymph # (Auto) Ward # (Auto) Eos # (Auto) Baso # (Auto) Immature Gran % Nucleated RBC % Immature Gran # Nucleated RBCs # Sodium 140 Potassium 4.2 Chloride 102 Carbon Dioxide 30 Anion Gap 12.2 BUN 31 H Creatinine 1.80 H GFR Calculation 56 BUN/Creatinine Ratio 17.00 Glucose 77 POC Glucose 159 H Calculated Osmolality 284.4 Calcium 9.1 Phosphorus 4.0 Magnesium 2.1 Total Creatine Kinase CK-MB (CK-2) Troponin I B-Natriuretic Peptide 1031 H Albumin 3.0 L - Diagnostic Findings Procedure: Chest x-ray: report reviewed by me - EKG EKG results: interpreted by me EKG shows: atrial fibrillation <Laith Winkler - Last Filed: 03/25/17 16:29> History of Present Illness - Consult Narrative History of present illness: Mr. Garner is a 57 year old male CC: Carin Chang MD Physical Examination Vital Signs Temp Pulse Resp BP Pulse Ox 97.2 F L 94 H 20 117/78 89 L 03/23/17 12:58 03/23/17 12:58 03/23/17 12:58 03/23/17 12:58 03/23/17 12:58 Result/EKG - Labs CBC & BMP: 03/25/17 08:56 03/25/17 08:56 Labs: Laboratory Results - last 24 hr 03/24/17 03/25/17 03/25/17 19:35 07:40 08:05 WBC RBC Hgb Hct MCV MCH MCHC RDW Plt Count MPV Neut % (Auto) Lymph % (Auto) Ward % (Auto) Eos % (Auto) Baso % (Auto) Neut # (Auto) Lymph # (Auto) Ward # (Auto) Eos # (Auto) Baso # (Auto) Immature Gran % Nucleated RBC % Immature Gran # Nucleated RBCs # Sodium Potassium Chloride Carbon Dioxide Anion Gap BUN Creatinine GFR Calculation BUN/Creatinine Ratio Glucose POC Glucose 149 H 52 L 54 L Calculated Osmolality Calcium Phosphorus Magnesium Total Creatine Kinase CK-MB (CK-2) Troponin I B-Natriuretic Peptide Albumin 03/25/17 03/25/17 03/25/17 08:56 08:56 08:56 WBC 4.7 RBC 5.70 H Hgb 17.5 Hct 51.9 MCV 91.1 MCH 31 MCHC 33.7 RDW 15.2 Plt Count 136 MPV 10.0 Neut % (Auto) 51.7 Lymph % (Auto) 34.2 Ward % (Auto) 9.4 Eos % (Auto) 3.4 Baso % (Auto) 1.1 H Neut # (Auto) 2.4 Lymph # (Auto) 1.6 Ward # (Auto) 0.4 Eos # (Auto) 0.2 Baso # (Auto) 0.1 Immature Gran % 0.2 Nucleated RBC % 0.0 Immature Gran # 0.01 Nucleated RBCs # 0.00 Sodium 140 Potassium 4.2 Chloride 102 Carbon Dioxide 30 Anion Gap 12.2 BUN 31 H Creatinine 1.80 H GFR Calculation 56 BUN/Creatinine Ratio 17.00 Glucose 77 POC Glucose Calculated Osmolality 284.4 Calcium 9.1 Phosphorus 4.0 Magnesium 2.1 Total Creatine Kinase CK-MB (CK-2) Troponin I B-Natriuretic Peptide 1031 H Albumin 3.0 L 03/25/17 03/25/17 03/25/17 09:02 12:04 13:19 WBC RBC Hgb Hct MCV MCH MCHC RDW Plt Count MPV Neut % (Auto) Lymph % (Auto) Ward % (Auto) Eos % (Auto) Baso % (Auto) Neut # (Auto) Lymph # (Auto) Ward # (Auto) Eos # (Auto) Baso # (Auto) Immature Gran % Nucleated RBC % Immature Gran # Nucleated RBCs # Sodium Potassium Chloride Carbon Dioxide Anion Gap BUN Creatinine GFR Calculation BUN/Creatinine Ratio Glucose POC Glucose 159 H 121 H Calculated Osmolality Calcium Phosphorus Magnesium Total Creatine Kinase 97 D CK-MB (CK-2) 4.1 H Troponin I 0.066 H B-Natriuretic Peptide Albumin 03/25/17 15:55 WBC RBC Hgb Hct MCV MCH MCHC RDW Plt Count MPV Neut % (Auto) Lymph % (Auto) Ward % (Auto) Eos % (Auto) Baso % (Auto) Neut # (Auto) Lymph # (Auto) Ward # (Auto) Eos # (Auto) Baso # (Auto) Immature Gran % Nucleated RBC % Immature Gran # Nucleated RBCs # Sodium Potassium Chloride Carbon Dioxide Anion Gap BUN Creatinine GFR Calculation BUN/Creatinine Ratio Glucose POC Glucose 157 H Calculated Osmolality Calcium Phosphorus Magnesium Total Creatine Kinase CK-MB (CK-2) Troponin I B-Natriuretic Peptide Albumin
--- NOTE | 2017-03-25 12:40 | Event Note ---
Patient's blood pressure continues to increase. ARB not restarted due to fear of worsening renal insufficiency. I have added Hydralazine and Imdur instead, starting dose now.
[2017-03-25] MEDS ORDERED: ISOSORBIDE MONONITRATE 30 MG TABLET PO SCH (13:00)
[2017-03-25] MEDS: hydrALAZINE 25 MG TABLET PO SCH ×2 (13:04→16:37)
--- NOTE | 2017-03-25 13:28 | EKG Report ---
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
[2017-03-25 14:03] LABS: Troponin I Only 0.066 NG/ML (0.00-0.045)
--- NOTE | 2017-03-25 14:59 | Ultrasound Report ---
Exam: Left lower extremity venous Doppler/duplex ultrasound Comparison: April 02, 2010 Clinical history: Left leg edema Technique: Duplex scan of the left lower extremity veins using th B- mode/grayscale imaging and Dopplers spectral analysis and color flow. Findings: There is normal compression and augmentation of the left common femoral, superficial femoral and popliteal veins. The proximal left greater saphenous veins appear to be patent. Major venous structures of the left lower extremity demonstrating normal course and caliber with normal color-flow study and spectral analysis. Impression: No evidence to suggest deep venous thrombosis within the left lower extremity. Leg edema noted. Ultrasound images were captured and stored. PROCEDURE INTERPRETED AT [facility] DEPARTMENT OF RADIOLOGY Final Report Signed by: Dr. Jacklyn Pandey
[2017-03-25] MEDS ORDERED: DIGOXIN 0.25 MG TABLET PO SCH (17:04)
[2017-03-25] MEDS: SACUBITRIL/VALSARTAN 49-51 MG TABLET PO SCH (20:52)
[2017-03-25] MEDS: APIXABAN 5 MG TABLET PO SCH (20:52)
[2017-03-25 21:44] LABS: Troponin I Only 0.063 NG/ML (0.00-0.045)
[2017-03-26] MEDS: ALBUTEROL/IPRATROPIUM 3 ML NEB RESP TX SCH ×4 (00:10→19:48)
[2017-03-26 05:54] LABS: Basophils % 0.7 % (0.0-0.8); Eosinophils # 0.2 10*3/uL (0.0-0.87); Eosinophils % 4.1 % (0.00-10.9); Hematocrit 49.4 VOL% (42.0-52.0); Hemoglobin 16.5 GM/DL (14.0-18.0); Immature Granulocytes % 0.2 %; Immature Granulocytes Absolute 0.01 #; Lymphocytes # 1.5 10*3/uL (1.4-4.0); Lymphocytes % 34.5 % (21.2-54.2); Mean Corpuscular HGB Conc 33.4 GM/DL (32-36); Mean Corpuscular Hemoglobin 30 PG (27-34); Mean Platelet Volume 10.5 FL (9.6-12.0); Monocytes # 0.5 10*3/uL (0.11-0.8); Monocytes % 10.5 % (1.7-12.7); Neutrophils # 2.2 10*3/uL (1.4-7.4); Platelet Count 127 T/CUMM (130-400); Red Blood Count 5.43 MC/CUMM (3.8-5.5); Red Cell Distribution Width 14.8 % (9.3-17.3); White Blood Count 4.4 T/CUMM (4-12)
[2017-03-26 06:34] LABS: Calcium 8.7 MG/DL (8.5-10.1); Magnesium 2.1 MG/DL (1.8-2.4); Osmolality,Calculated 284.4 MOS/KG (273-304); Potassium 4.1 MMOL/L (3.5-5.1); Risk Ratio 2.6; VLDL CHOLESTEROL 16.6 MG/DL
[2017-03-26 06:35] LABS: Albumin 2.8 G/DL (3.4-5.0); Calcium 8.6 MG/DL (8.5-10.1); Magnesium 2.2 MG/DL (1.8-2.4); Osmolality,Calculated 286.4 MOS/KG (273-304); Phosphorous 3.7 MG/DL (2.5-4.9); Potassium 4.3 MMOL/L (3.5-5.1)
--- NOTE | 2017-03-26 07:26 | XRay Report ---
XR chest 1V portable Indication: SOB Comparison: Chest x-ray dated March 24, 2017 Technique: Single frontal view of the chest Findings: Continued cardiomegaly. Mildly improved coarse bilateral interstitial prominence suggesting improved interstitial pulmonary edema with mild residual remaining. There is right basilar atelectasis/consolidation and probable small right pleural fluid. Osseous and surrounding soft tissue structures appear grossly unchanged. IMPRESSION: As above. PROCEDURE INTERPRETED AT [facility] DEPARTMENT OF RADIOLOGY Final Report Signed by: Dr Matthew Castillo
--- NOTE | 2017-03-26 07:33 | EKG Report ---
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
[2017-03-26] MEDS: INSULIN NPH/REGULAR 70/30 100 UNIT/ML SUBCUT SCH ×2 (07:35→16:30)
[2017-03-26] MEDS: INSULIN REGULAR 100 UNIT/ML SUBCUT SCH ×4 (07:35→21:32)
[2017-03-26] MEDS: FUROSEMIDE 40 MG/4 ML VIAL IV SCH (09:03)
[2017-03-26] MEDS: SACUBITRIL/VALSARTAN 49-51 MG TABLET PO SCH ×2 (09:04→21:26)
[2017-03-26] MEDS: PANTOPRAZOLE 40 MG TABLET PO SCH (09:04)
[2017-03-26] MEDS: APIXABAN 5 MG TABLET PO SCH ×2 (09:04→21:25)
[2017-03-26] MEDS: CARVEDILOL 12.5 MG TABLET PO SCH ×2 (09:05→21:25)
[2017-03-26] MEDS: ASPIRIN EC 81 MG TABLET PO SCH (09:05)
[2017-03-26] MEDS: CEFTAROLINE 600 MG in SODIUM CHLORIDE 0.9% 100 ML IV SCH (13:18)
[2017-03-26 14:19] LABS: Troponin I Only 0.044 NG/ML (0.00-0.045)
--- NOTE | 2017-03-26 14:29 | Hospitalist Progress Note ---
Hospitalist: Subjective Interval history: Shortness of breath and cough improving. No fever. Diuresing well. No nausea or vomiting. Tolerating p.o. Bowel movements 1 today. No diarrhea. No melena or bright red blood per rectum. He is negative a liter so far yesterday and negative almost a liter so far today. Exam - Constitutional Vitals: Period Temp Pulse Resp BP Sys/Jane Pulse Ox Last 24 Hr 96.0 F-98.0 F 68-83 17-20 118-145/61-88 86-99 Exam: A and Ox 3 RRR distant heart tones no obvious murmur appreciated Diminished lung sounds. With better aeration. Nonlabored. Speaking in full sentences Soft, NT, proturbanant, +BS Warm. +cyanosis at tips no clubbing. +1 Edema of lower extremities s/p R AKA Neuro: nonfocal Results - Labs CBC & BMP: 03/26/17 04:57 03/26/17 04:58 - Impressions *Acute on Chronic systolic and diastolic CHF exacerbation (EF35%) - ECHO reviewed - On IV Lasix and Coreg. Change Lasix to po since appears better compensated. On Entresto. Strict I and O. Daily weights. Serial RFP. BNP increasing. Replace lytes as needed. CXR reviewed and shows improvement in pulm edema. - Cardiology following. - Wean oxygen as tolerated * Elevated troponin - trended down. Cards following. *Severe pulmonary hypertension (chronic) - probably would benefit from an outpatient sleep study and PFTs *Acute Lower extremity cellulitis with stage 2-3 DM ulcer on LLE- improving - On Teflaro. Monitor. Wound care following. Lymphadema wrap in place *DM- insulin dependent with hypoglycemia - Controlled. Cont long acting insulin 15U BID. Cont I.S.S. and accuchecks ac, hs. Cont 1800 ADA diet DVT prophylaxis- Lovenox renally doses. D/W pt and nurse and all questions answered.
[2017-03-26] MEDS: FUROSEMIDE 80 MG TABLET PO SCH (17:28)
[2017-03-26 21:44] LABS: Troponin I Only 0.044 NG/ML (0.00-0.045)
[2017-03-27] MEDS: CEFTAROLINE 600 MG in SODIUM CHLORIDE 0.9% 100 ML IV SCH ×2 (00:01→18:51)
[2017-03-27] MEDS: ALBUTEROL/IPRATROPIUM 3 ML NEB RESP TX SCH ×3 (00:12→14:23)
[2017-03-27 06:03] LABS: Basophils % 0.6 % (0.0-0.8); Eosinophils # 0.2 10*3/uL (0.0-0.87); Eosinophils % 4.1 % (0.00-10.9); Hematocrit 53.1 VOL% (42.0-52.0); Hemoglobin 17.2 GM/DL (14.0-18.0); Immature Granulocytes % 0.2 %; Immature Granulocytes Absolute 0.01 #; Lymphocytes # 1.9 10*3/uL (1.4-4.0); Lymphocytes % 36.7 % (21.2-54.2); Mean Corpuscular HGB Conc 32.4 GM/DL (32-36); Mean Corpuscular Hemoglobin 30 PG (27-34); Mean Corpuscular Volume 93.8 FL (87-102); Mean Platelet Volume 10.7 FL (9.6-12.0); Monocytes # 0.5 10*3/uL (0.11-0.8); Monocytes % 8.9 % (1.7-12.7); Neutrophils # 2.6 10*3/uL (1.4-7.4); Neutrophils % 49.5 % (38.7-73.9); Platelet Count 131 T/CUMM (130-400); Red Blood Count 5.66 MC/CUMM (3.8-5.5); Red Cell Distribution Width 15.1 % (9.3-17.3); White Blood Count 5.2 T/CUMM (4-12)
[2017-03-27 06:33] LABS: Calcium 8.9 MG/DL (8.5-10.1); Magnesium 2.2 MG/DL (1.8-2.4); Osmolality,Calculated 285.3 MOS/KG (273-304)
[2017-03-27] MEDS: INSULIN NPH/REGULAR 70/30 100 UNIT/ML SUBCUT SCH ×2 (07:25→18:46)
[2017-03-27] MEDS: INSULIN REGULAR 100 UNIT/ML SUBCUT SCH ×3 (07:35→18:50)
--- NOTE | 2017-03-27 08:23 | Hospitalist Progress Note ---
Hospitalist: Subjective Interval history: Pt states SOB is better. Minimal cough. No fever. Tolerating po. No abd pain. + BM Exam - Constitutional Vitals: Period Temp Pulse Resp BP Sys/Jane Pulse Ox Last 24 Hr 96.0 F-97.5 F 64-88 20-20 104-133/72-84 85-100 Exam: A and Ox 3 RRR distant heart tones no obvious murmur appreciated Diminished lung sounds. With better aeration. Nonlabored. Speaking in full sentences Soft, NT, proturbanant, +BS Warm. +cyanosis at tips no clubbing. +trace to +1 Edema of lower extremities s/ p R AKA Neuro: nonfocal Results - Labs CBC & BMP: 03/27/17 04:35 03/27/17 04:35 - Impressions *Acute on Chronic systolic and diastolic CHF exacerbation (EF35%)- improved - ECHO reviewed - On Hold Lasix and Entresto due to increasing creatinine. Cont Coreg. Strict I and O. Daily weights. Serial RFP. Replace lytes as needed. - CXR reviewed and shows improvement in pulm edema. - Cardiology following. - Wean oxygen as tolerated * Acute renal failure on CKD stage 3 - stop Lasix and Entresto. Recheck RFP in am. If improved, consider dc 03/28. If worsened, consult renal * Afib- on Eliquis per cards * Elevated troponin - trended down. Cards following. *Severe pulmonary hypertension (chronic) - probably would benefit from an outpatient sleep study and PFTs *Acute Lower extremity cellulitis with stage 2-3 DM ulcer on LLE- improving - On Teflaro. Monitor. Wound care following. Lymphadema wrap in place *DM- insulin dependent with hypoglycemia - Controlled. Cont long acting insulin 15U BID. Cont I.S.S. and accuchecks ac, hs. Cont 1800 ADA diet DVT prophylaxis- Lovenox renally doses. D/W pt and nurse and all questions answered.
[2017-03-27] MEDS: CARVEDILOL 12.5 MG TABLET PO SCH (09:08)
[2017-03-27] MEDS: ASPIRIN EC 81 MG TABLET PO SCH (09:08)
[2017-03-27] MEDS: APIXABAN 5 MG TABLET PO SCH (09:08)
[2017-03-27] MEDS: PANTOPRAZOLE 40 MG TABLET PO SCH (09:08)
[2017-03-27] MEDS ORDERED: SODIUM BICARBONATE 50 MEQ/50 ML SYRINGE IV ONE ×2 (10:00→16:23)
[2017-03-27] MEDS ORDERED: EPINEPHrine 1 MG/ML VIAL ONE ×2 (10:00→16:23)
[2017-03-27] MEDS ORDERED: ATROPINE 1 MG/10 ML SYRINGE ONE ×2 (10:10→16:23)
[2017-03-27] MEDS ORDERED: MAGNESIUM SULFATE 1 GM/2 ML VIAL ONE (10:10)
[2017-03-27] MEDS ORDERED: AMIODARONE 150 MG/3 ML VIAL ONE ×2 (10:10→10:18)
[2017-03-27] MEDS ORDERED: methylPREDNISolone SOD SUC 125 MG/2 ML VIAL ONE (10:10)
[2017-03-27] MEDS ORDERED: diphenhydrAMINE 50 MG/1 ML VIAL ONE (10:10)
--- NOTE | 2017-03-27 10:23 | Event Note ---
Patient is a 57-year-old white male with severe diabetes and congestive heart failure who was found unresponsive not breathing and with no heartbeat. Initial rhythm was asystole. CPR was begun and patient was given 3 epinephrines and a sodium bicarbonate IV. Patient was intubated with a #7.5 ET tube. There was good color change and had bilateral equal breath sounds. Patient regained a pulse. Patient care was turned over to the hospitalist and I returned to the emergency department.
[2017-03-27] MEDS ORDERED: AMIODARONE 450 MG/9 ML VIAL IV ONE (10:26)
[2017-03-27] MEDS ORDERED: MAGNESIUM SULF RIDER 2 GM in PREMIX 1 EACH IV PRN ×2 (10:31→15:36)
[2017-03-27] MEDS ORDERED: POTASSIUM CHLORIDE RIDER 10 MEQ in PREMIX 1 EACH IV PRN ×2 (10:31→15:36)
--- NOTE | 2017-03-27 10:38 | EKG Report ---
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
[2017-03-27 10:40] LABS: Pt O2 Delivery Device Ventilator
[2017-03-27 10:41] LABS: ABG Base Excess -6.9 MMOL/L (-2.5-2.5); ABG HCO3 18.9 MMOL/L (20-26); ABG Oxygen Saturation 92.8 % (95-100); ABG PH 7.269 (7.35-7.45); ABG PO2 76.9 MM HG (80-95); ABG TCO2 16.9 MMOL/L (23-27)
[2017-03-27] MEDS ORDERED: MIDAZOLAM 2 MG/2 ML VIAL ONE (10:50)
--- NOTE | 2017-03-27 10:55 | XRay Report ---
XR chest 1V portable Indication: CODE BLUE Comparison: Chest x-ray dated March 26, 2017 at 5:14 AM Technique: Single frontal view of the chest Findings: Continued cardiomegaly. Interval intubation with endotracheal tube tip proximally 2.7 cm above the indu. Continued mild coarse interstitial prominence which may reflect interstitial pulmonary edema or interstitial pneumonia. Continued right basilar atelectasis/consolidation as well as small other scattered opacities. Osseous and surrounding soft tissue structures appear grossly unchanged. IMPRESSION: As above. PROCEDURE INTERPRETED AT [facility] DEPARTMENT OF RADIOLOGY Final Report Signed by: Dr Matthew Castillo
[2017-03-27] MEDS: methylPREDNISolone SOD SUC 125 MG/2 ML VIAL IV SCH ×2 (11:10→18:46)
[2017-03-27] MEDS: diphenhydrAMINE 50 MG/1 ML VIAL IV SCH ×2 (11:10→18:45)
[2017-03-27] MEDS ORDERED: LIDOCAINE 1% 20 ML VIAL ONE (11:17)
[2017-03-27 11:23] LABS: INR 1.5; PT Patient Result 15.7 SECS
[2017-03-27] MEDS ORDERED: FAMOTIDINE INJ 40 MG in SODIUM CHLORIDE 0.9% 100 ML IV SCH (11:30)
[2017-03-27] MEDS ORDERED: ENOXAPARIN 60 MG/0.6 ML SYRINGE ONE (11:30)
[2017-03-27] MEDS ORDERED: TIROFIBAN 5,000 MCG/100 ML PREMIX IV ONE (11:32)
[2017-03-27] MEDS ORDERED: PROPOFOL 200 MG/20 ML VIAL IV ONE (11:59)
[2017-03-27] MEDS ORDERED: PROPOFOL 1,000 MG/100 ML BOTTLE IV ONE (11:59)
[2017-03-27 12:26] LABS: ABG Base Excess -9.5 MMOL/L (-2.5-2.5); ABG HCO3 17.1 MMOL/L (20-26); ABG Oxygen Saturation 98.9 % (95-100); ABG PCO2 45.4 MM HG (35-48); ABG PH 7.223 (7.35-7.45); ABG TCO2 16.1 MMOL/L (23-27)
[2017-03-27] MEDS ORDERED: FUROSEMIDE 40 MG/4 ML VIAL ONE (12:29)
[2017-03-27] MEDS ORDERED: ZALEPLON 5 MG CAPSULE PO PRN (12:34)
--- NOTE | 2017-03-27 12:55 | Cardiac Catheterization ---
Date of Procedure:: 03/27/17 Post-op diagnosis: same Procedure: Procedure performed: 1. Coronary angiography 2. Angioplasty of D1 and D2 occlusions (2.5 x 20 balloon) 3. Pulmonary arteriogram, after right femoral vein access 4. Right femoral arteriotomy closed with angina device Brief clinical summary: Mr. 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 He is reportedly followed by outside supervisor [facility] in [place] previously for sent what sounds like cardiomyopathy. He has atrial fibrillation with sounds and there was chronic but we have no confirmation of that. His heart failure had improved very significantly yesterday, but today he suddenly coded with reported asystole. He was resuscitated with hypotension and wide complex. He has a baseline right bundle branch block. 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 I gave him 0.7 mg/kg of IV Lovenox prior to procedure. A short 6 Maldivian sheath was placed in the right femoral artery using a modified center technique after the patient received IV sedation and local anesthetic. Next a JL4 catheter was advanced engaged the left coronary angiography was performed in multiple views. Percutaneous coronary mention was then performed as described below. Percutaneous coronary intervention: An EBU 3.5 guiding catheter was advanced engaged to the left coronary artery which probably was a little short but provided adequate backup. A pro-water wire was advanced to the distal LAD if the area of occlusion but would not cross it. In retrospect it appears that was a chronic total occlusion, but the distal LAD cannot be seen filling by collaterals. After multiple shots I noted subtotal thrombus disease in the mid to distal first diagonal and in the proximal second diagonal. These were both angioplasty with a 2.5 x 20 balloon restoring relatively normal flow. There was 30% residual stenosis at both sites. The patient became more hypertensive at the beginning of the case requiring high-dose dopamine. However he became hypertensive later in the case and I gradually decrease his dopamine to 5 mcg/kg /min. As I am dictating he is still hypertensive so we discontinued his dopamine. I removed the EBU and advanced a hockey-stick guiding catheter which engaged the right coronary artery performed angiogram in multiple views. There was no target for intervention, so nothing further was done. This was removed over a wire. Next a short 7 Maldivian sheath was placed in the right femoral vein using a Seldinger technique. After this a bent pigtail catheter was advanced with a J-wire I manipulated the J-wire into the pulmonary artery trunk where pulmonary arteriogram was performed. This was then removed over wire. The venous sheath was fixed in place as the patient was on dopamine at the time. We will tentatively plan to pull this later in the day. ABG was drawn during the procedure which showed ABG in the 140 range. Coronary angiography: Left main coronary artery is ectatic but has trivial stenosis less than 20%. Left introducing artery is also somewhat ectatic and moderately calcified with an occlusion at the takeoff of the second diagonal branch. The tip of the LAD cannot be seen filling by collaterals although some collaterals can be seen. The first diagonal has a mid to distal occlusion with suggestion of thrombus. The second diagonal has a proximal area of thrombus causing occlusion. The circumflex has 40-50% ostial and proximal stenosis with one large ectatic obtuse marginal which is 50% mid stenosis. The right coronary artery is dominant vessel is also ectatic. There is diffuse mild disease with a long PDA but has subtotal occlusion in a subbranch of it. There is a moderate sized PL [address] to which had diffuse mild disease. The vessel still a bit slow due to poor cardiac output. Pulmonary arteriogram: There is no evidence of pulmonary embolus with normal pulmonary artery anatomy. Impression: 1. Right dominant system 2. Coronary arteries as described above including but not limited to: A. High distal occlusion of the LAD, as well as occlusion of the mid D1, and proximal D2 branches due to thrombus B. Diffuse nonsignificant 30-50% disease of the circumflex system C. Diffuse nonsignificant 30-50% disease with occlusion of a thin subbranch of the PDA 3. Coronary arteries are moderately ectatic with mild to moderate calcification diffusely 4. Status post angioplasty of D1 and D2 occlusions with 2.5 x 20 balloon restoring normal flow with 30% residual stenosis in both 5. Normal pulmonary arteries without evidence of pulmonary embolus Recommendation discussion: I believe achieved very good result with regard to angioplasty of Mr. Garner's occluded diagonal branches. It is still surprising that he coded due to occlusion of these 2 modest size branches. His PO2 is in the 140s but he seems to have poor perfusion probably from low cardiac output with suggestion of cyanosis on physical examination. I am giving him IV Lasix, will need to watch him closely. Unfortunately he has probably moderate renal insufficiency with poor cardiac outputs will need to watch him for JOSE. He will be watched closely in the CCU. Fortunately able to wean off pressors. Anesthesia: minimal conscious sedation, other Surgeon / Physician: Laith Puente Oreman: other Estimated blood loss: minimal Specimens: none sent Condition: stable Disposition: ICU/CCU - Medications / Follow-up
[2017-03-27] MEDS ORDERED: PROPOFOL 1,000 MG/100 ML BOTTLE IV SCH (13:00)
[2017-03-27] MEDS ORDERED: TIROFIBAN 5,000 MCG/100 ML PREMIX IV SCH (13:00)
[2017-03-27] MEDS ORDERED: NITROGLYCERIN DRIP 50 MG/250 ML BOTTLE IV ONE (13:11)
--- NOTE | 2017-03-27 14:01 | EKG Report ---
Stationary ECG Study [facility] Test Date: 03/27/2017 2:01:20 PM Pat Name: HEATHER YORK Department: Room: 111 Gender: M Core Manager: OLIVIA : 1960 Requested by: Laith Corrales Order Number: [id number] Reading MD: MARELY VEGA Intervals [place]al Rate: 54 P: 42 IA: 243 QRS: 267 QRSD: 172 T: 87 QT: 479 QTc: 465 Interpretive Statements SINUS BRADYCARDIA WITH SINUS ARRHYTHMIA WITH PROLONGED IA INTERVAL MARKED RIGHT AXIS DEVIATION RIGHT BUNDLE BRANCH BLOCK INFERIOR MYOCARDIAL INFARCTION, OLD ANTEROLATERAL MYOCARDIAL INFARCTION, OF INDETERMINATATE AGE Electronically Signed On 03-31-17 16:09:12 CDT by MARELY VEGA [email or web address]
--- NOTE | 2017-03-27 14:02 | CT Report ---
CT head/brain wo con Indication: Rule out bleed, posturing post catheter Comparison: None Technique: Multiple axial tomographic images of the brain were obtained without the use of intravenous contrast. Findings: Midline structures are nondisplaced. Study limited secondary to artifact within the posterior cranial fossa. No convincing CT evidence of acute intracranial hemorrhage. Mild periventricular and subcortical hypoattenuation noted which is nonspecific but consistent with chronic microvascular ischemic change. Paranasal sinuses and mastoid air cells clear. IMPRESSION: Limited exam without convincing CT evidence of acute intracranial abnormality. Probable chronic microvascular ischemic change. The CT exam was performed using one or more of the following dose reduction techniques: Automated exposure control, adjustment of the mA and/or kV according to patient size, or use of iterative reconstruction technique. PROCEDURE INTERPRETED AT [facility] DEPARTMENT OF RADIOLOGY Final Report Signed by: Dr Matthew Castillo
[2017-03-27] MEDS ORDERED: HEPARIN/NACL 0.9% 2 UNITS/ML 500 ML IV ONE (14:13)
[2017-03-27 14:14] LABS: Apearance,Urine CLOUDY (Clear); Bilirubin,Urine Negative (Negative); Blood, Urine Moderate mg/dL (Negative); Glucose,Urine (UA) 50 mg/dL (Negative); Hyaline Casts,Urine 4 /LPF (0-3); Ketones,Urine Negative (Negative); Mucus,Urine Occasional /LPF (Occasional); Nitrite,Urine Negative (Negative); Protein,Urine >=500 MG/DL; RBC,Urine 71 /HPF (0-4); Squamous Epithelial Cell,Urine Occasional /HPF (0-10); Urine Color Amber (Yellow); Urine Specific Gravity 1.033 (1.001-1.035); Urine Urobilinogen < 2.0 EU/DL (0.2-1.0); WBC,Urine 79 /HPF (0-6)
[2017-03-27] MEDS ORDERED: fentaNYL 100 MCG/2 ML VIAL IV ONE (15:00)
[2017-03-27] MEDS ORDERED: NOREPINEPHRINE 4 MG/4 ML VIAL IV ONE (15:17)
[2017-03-27] MEDS ORDERED: NOREPINEPHRINE 8 MG in SODIUM CHLORIDE 0.9% 242 ML IV SCH (15:30)
[2017-03-27] MEDS ORDERED: CISATRACURIUM 200 MG in SODIUM CHLORIDE 0.9% 100 ML IV SCH (15:30)
[2017-03-27] MEDS ORDERED: MINERAL OIL/PETROLATUM OPH OINT 3.5 GM TUBE BOTH EYES PRN (15:30)
[2017-03-27] MEDS ORDERED: PHENYLEPHRINE DRIP 40 MG/250 ML PREMIX IV SCH (15:30)
[2017-03-27] MEDS ORDERED: fentaNYL INJ 1,250 MCG in SODIUM CHLORIDE 0.9% 225 ML IV SCH (15:30)
[2017-03-27] MEDS ORDERED: POTASSIUM CHLORIDE RIDER 20 MEQ in PREMIX 1 EACH IV PRN (15:36)
[2017-03-27] MEDS ORDERED: MAGNESIUM SULF RIDER 4 GM in PREMIX 1 EACH IV PRN (15:36)
--- NOTE | 2017-03-27 15:38 | XRay Report ---
Exam: XR chest 1V portable Date: 03/27/2017 3:20 PM Indication: Central line placement Comparison: 03/27/2017 at 10:17 AM Technical: AP portable Findings: Right IJ catheter has been placed the distal tip is in superior vena cava. Endotracheal tube is present. External cardiac leads are present. Cardiomegaly is present. Oxygen tubing is present. No infiltrates or effusions or pneumothorax present. Impression: 1. Stable appearance of the endotracheal tube and interval placement right IJ catheter 2. Cardiomegaly without decompensation clearly seen 3. No pneumothorax PROCEDURE INTERPRETED AT [facility] DEPARTMENT OF RADIOLOGY Final Report Signed by: Dr. Lior Grossman
[2017-03-27] MEDS ORDERED: CEFTAROLINE 400 MG in SODIUM CHLORIDE 0.9% 100 ML IV SCH (16:00)
[2017-03-27 17:15] LABS: Basophils % 0.3 % (0.0-0.8); Eosinophils % 0.1 % (0.00-10.9); Hematocrit 61.2 VOL% (42.0-52.0); Immature Granulocytes % 0.9 %; Immature Granulocytes Absolute 0.11 #; Lymphocytes # 1.4 10*3/uL (1.4-4.0); Lymphocytes % 11.9 % (21.2-54.2); Mean Corpuscular Hemoglobin 31 PG (27-34); Mean Corpuscular Volume 94.3 FL (87-102); Mean Platelet Volume 10.7 FL (9.6-12.0); Monocytes # 0.5 10*3/uL (0.11-0.8); Monocytes % 4.1 % (1.7-12.7); Neutrophils % 82.7 % (38.7-73.9); Platelet Count 158 T/CUMM (130-400); Red Blood Count 6.49 MC/CUMM (3.8-5.5); Red Cell Distribution Width 16.7 % (9.3-17.3)
[2017-03-27 17:23] LABS: Hemoglobin 20.2 GM/DL (14.0-18.0)
[2017-03-27 17:27] LABS: INR 1.9; PT Patient Result 20.9 SECS
[2017-03-27 17:30] LABS: Partial Thromboplastin Time 45.5 SECS (0-40)
[2017-03-27 17:32] VITALS: BP 140/121
--- NOTE | 2017-03-27 17:38 | Event Note ---
I again came back to the bedside and Dr. Franco had started coding him again for bradycardia. He is receiving CPR. He has been on a cooling apparatus for well over an hour. His CT brain showed no evidence of hemorrhage. However he continues to have some erraticness to his gaze and his pupils have been abnormal. His prognosis is poor.
[2017-03-27 18:11] LABS: Albumin 2.9 G/DL (3.4-5.0); Bilirubin,Total 2.9 MG/DL (0.2-1.0); Calcium 8.4 MG/DL (8.5-10.1); Magnesium 2.8 MG/DL (1.8-2.4); Osmolality,Calculated 288.4 MOS/KG (273-304); Potassium 5.4 MMOL/L (3.5-5.1); Total Protein 6.5 G/DL (6.4-8.3)
[2017-03-27 18:20] LABS: CKMB % 8.8 %
[2017-03-27 18:21] LABS: Troponin I Only 8.39 NG/ML (0.00-0.045)
--- NOTE | 2017-03-27 18:34 | ECHO Report ---
Terence Garner Exam Date: 03/27/2017 11:22 Referring Physician: Technologist: Amy Roberts Age: 57 Ht (in): 74 Wt (lb): 276 Gender: M Exam Location: [facility] Echo Indications: Cardiac arrest BP: / HR: Rhythm: Sinus Technical Quality: Limited study IMPRESSIONS 1. This very limited study. 2. Left ventricle Sprite upper limits of normal size with severe global hypokinesis and ejection fraction 25%. 3. Other cardiac chambers are all mildly dilated. 4. Valvular structures grossly normal anatomically. The pulmonic valve was not adequately visualized. 5. There is no Doppler evaluation available for interpretation. MEASUREMENTS (Male / Female) Normal Values FINDINGS Left Ventricle Left ventricle is probably upper limits of normal size with at least mild concentric left ventricular hypertrophy and global hypokinesis with an ejection fraction of 25% Right Ventricle Right ventricle is probably mildly enlarged and hypokinetic. Right Atrium Right atrium is mildly dilated. Left Atrium Left atrium is probably mildly dilated. Mitral Valve Mitral valve may be slightly thickened and motion appears to be normal. There is no Doppler available. Aortic Valve Aortic valve is probably tricuspid structure is sclerotic but with good motion. Tricuspid Valve Tricuspid valve appears to be grossly anatomically normal. Pulmonic Valve Pulmonic valve is not adequately visualized to comment on. Pericardium There is no gross pericardial effusion. Aorta Aortic root appears normal size. Bubba Barron MD (Electronically Signed) Final Date: 27 Mar 2017 18:33
--- NOTE | 2017-03-27 18:40 | Event Note ---
The patient was seen and examined. The site was marked. A timeout was taken. The patient's identity, procedure, consent and location were identified. The patient was prepped and draped in sterile fashion. Local anesthesia was given with 1% lidocaine plain. The internal jugular vein was accessed and the guide wire placed without difficulty. After using the tissue dilator, the triple lumen catheter was placed over the wire and the wire removed intact. All ports were flushed with normal saline and functioned well. The central line was secured with the enclosed suture. A chest x-ray was ordered to confirm placement. The patient tolerated the procedure well. The nurse will place the apporiate dressing according to the hospital protocols. Chest x-ray confirms adequate placement without pneumothorax.
--- NOTE | 2017-03-27 18:43 | Event Note ---
CODE BLUE note Patient had acute cardiopulmonary arrest. I arrived to find CPR started by the nursing staff in the emergency room physician at the bedside. The patient was intubated by the emergency room physician. ACLS protocol was followed with chest compressions and epinephrine for pulseless electrical activity. Patient regained a pulse and had wide QRS tachycardia. He was transferred down to the intensive care unit. He was started on amiodarone and given an amiodarone bolus of 150 mg. He required multiple rounds of epinephrine and continued chest compressions as well as defibrillation with 150 J. Ultimately the patient was taken to the [facility] where he was found to have severe coronary artery disease requiring balloon angioplasty of the diagonal branches and revealed a mid LAD stenosis. Patient has significant congestive heart failure with an ejection fraction of approximately 15%. Echocardiogram was done at the bedside at the time of code. There is no evidence of pulmonary embolism. The patient continued to deteriorate throughout the day. He was started on [facility] protocols. A right internal jugular central line was placed for medication administration and her [facility] protocols.
--- NOTE | 2017-03-27 18:45 | Discharge Summary ---
Hospital Course - Hospital Course Hospital Course: This a 57 year old male that presented to the ED at [facility] per EMS for evaluation of shortness of breath, chest pain, and hypoglycemia. The patient has a rather impressive medical history of congestive heart failure, diabetes mellitus, and chronic lung disease. He reports an onset generalized weakness that he attributed to a "low blood sugar". He ate a candy bar and drank a soft drink with no improvement. He proceeded to call EMS for further evaluation. Upon EMS arrival, his blood sugar was noted at 40. He was given fluids and IV dextrose; and his blood sugar improved to 141 at the time of arrival. The patient reports problems similar in nature in the past and reports no current PCP. At the time of ED presentation; labs were obtained which reported a BUN at 29, creatinine at 1.70, bilirubin at 1.48, alkaline phosphate 1.60. Cardiac enzymes were obtained which were mildly elevated at 0.069. EKG was postitive for right bundle branch block with elevated ST levels in V4 5 and 6. Cardiology was contacted for review and they determined that the probability for acute VT was low since the patient was asymptomatic. Chest radiograph was obtained; which was significant for mild cardiomegaly; The interstitial markings are prominent bilaterally, scattered opacities within both lower lung zones, mainly on the right. This raised concern for pulmonary edema and atelectasis, but there could be pneumonia and mild right pleural fluid. After discussion with both Dr. Vogel and Dr. Rm, the patient was admitted to the hospitalist service. The patient had acute cardiopulmonary arrest on 03/27/2017. I arrived to find CPR started by the nursing staff in the emergency room physician at the bedside. The patient was intubated by the emergency room physician. ACLS protocol was followed with chest compressions and epinephrine for pulseless electrical activity. Patient regained a pulse and had wide QRS tachycardia. He was transferred to the intensive care unit. He was started on amiodarone and given an amiodarone bolus of 150 mg. He required multiple rounds of epinephrine and continued chest compressions as well as defibrillation with 150 J. Ultimately the patient was taken to the [facility] where he was found to have severe coronary artery disease requiring balloon angioplasty of the diagonal branches and revealed a mid LAD stenosis. Patient has significant congestive heart failure with an ejection fraction of approximately 25%. Echocardiogram was done at the bedside at the time of code. There is no evidence of pulmonary embolism. The patient continued to deteriorate throughout the day. He was started on [facility] protocols. A right internal jugular central line was placed for medication administration and per [facility] protocols. The patient continued to deteriorate requiring more CPR, epinephrine and lost his pulse multiple times. He was started on Levophed for blood pressure support. The patient's brother was contacted regarding his declining status and decision to make patient DNR was made. Ultimately the patient succumbed to his 1729. Cause of : Coronary artery disease Acute myocardial infarction Acute on chronic congestive heart failure systolic type with depressed ejection fraction of 25%. Acute kidney injury Acute respiratory failure Atrial fibrillation with anticoagulation on Eliquis Cellulitis of lower extremity - Time spent with patient Time with patient DS: Greater than 30 minutes (Total discharge time for this patient, including [id number] time, clinical documentation, medication reconciliation, and discharge planning was 90 minutes.) - Cause of Cause of : Coronary artery disease,CHF, ARF Specialty Discharge - Follow Up or Referrals Discharge Plan - Discharge Medications No Action Furosemide Tab [Lasix Tab] 80 mg PO BID DIURETIC Aspirin EC Tab 81 mg PO DAILY Digoxin Tab [Lanoxin Tab] 0.5 mg PO TU Digoxin Tab [Lanoxin Tab] 0.25 mg PO SUMOWETHFRSA Insulin Aspart Prot/Insuln Asp [NovoLOG Mix 70-30 FlexPen] 42 unit SUBCUT 0800,1600 Valsartan/Hydrochlorothiazide [Diovan Hct 320-12.5 mg Tab] 1 each PO DAILY Carvedilol 12.5 mg PO BID - Follow Up or Referral - Forms/Instructions Instructions: Coronary Artery Disease (GEN), Left Heart Catheterization (DC), Coronary Angioplasty (DC), Heart Healthy Diet (GEN) Exam - Constitutional Vitals: Period Temp Pulse Resp BP Sys/Jane Pulse Ox Last 24 Hr 96.6 F-97.5 F 54-111 12-25 66-172/52-151 85-100 Discharge Results Procedures and tests throughout hospitalization: Pending Orders 03/27/17 Blood Culture Stat Urine Culture Routine 03/27/17 11:17 CL heart Stat 03/27/17 13:19 MRSA Surveillence, Inf Control Routine 03/27/17 15:09 Sputum Culture and Gram Stain Stat 03/27/17 15:58 Urinalysis Routine 03/27/17 21:25 CBC [Comp Blood Count Auto Diff] Q6H 03/27/17 21:26 Lactic Acid Q6H PT & PTT Q6H 03/27/17 22:00 BMP w/ Mg [Basic Metabolic Panel w/Mg] Q6H TPIMB [Troponin,CKMB & Ck Total] Q6H 03/28/17 03:00 Blood Culture Routine Sputum Culture and Gram Stain Routine 03/28/17 03:25 CBC [Comp Blood Count Auto Diff] Q6H 03/28/17 03:26 Lactic Acid Q6H PT & PTT Q6H 03/28/17 04:00 BMP w/ Mg [Basic Metabolic Panel w/Mg] IN AM BMP w/ Mg [Basic Metabolic Panel w/Mg] Q6H Basic Metabolic Panel IN AM CBC [Comp Blood Count Auto Diff] IN AM Magnesium IN AM Phosphorous IN AM TPIMB [Troponin,CKMB & Ck Total] Q6H 03/28/17 09:25 CBC [Comp Blood Count Auto Diff] Q6H 03/28/17 09:26 Lactic Acid Q6H PT & PTT Q6H 03/28/17 10:00 BMP w/ Mg [Basic Metabolic Panel w/Mg] Q6H TPIMB [Troponin,CKMB & Ck Total] Q6H 03/28/17 15:25 CBC [Comp Blood Count Auto Diff] Q6H 03/28/17 15:26 Lactic Acid Q6H PT & PTT Q6H 03/28/17 16:00 BMP w/ Mg [Basic Metabolic Panel w/Mg] Q6H 03/28/17 21:25 CBC [Comp Blood Count Auto Diff] Q6H 03/28/17 21:26 Lactic Acid Q6H PT & PTT Q6H 03/28/17 22:00 BMP w/ Mg [Basic Metabolic Panel w/Mg] Q6H 03/29/17 03:25 CBC [Comp Blood Count Auto Diff] Q6H 03/29/17 03:26 Lactic Acid Q6H PT & PTT Q6H 03/29/17 04:00 BMP w/ Mg [Basic Metabolic Panel w/Mg] Q6H Phosphorous Routine 03/29/17 09:25 CBC [Comp Blood Count Auto Diff] Q6H 03/29/17 09:26 Lactic Acid Q6H PT & PTT Q6H 03/29/17 10:00 BMP w/ Mg [Basic Metabolic Panel w/Mg] Q6H Labs on day of discharge: Labs from last 24 hours 03/27/17 03/27/17 03/27/17 17:08 17:08 17:08 WBC RBC Hgb Hct MCV MCH MCHC RDW Plt Count MPV Neut % (Auto) Lymph % (Auto) [place] % (Auto) Eos % (Auto) Baso % (Auto) Neut # (Auto) Lymph # (Auto) [place] # (Auto) Eos # (Auto) Baso # (Auto) Immature Gran % Nucleated RBC % Immature Gran # Nucleated RBCs # INR PT Patient/Control Mix Fibrinogen Circ Anticoag PTT ABG pH ABG pCO2 ABG pO2 ABG HCO3 ABG Total CO2 ABG O2 Saturation ABG Base Excess FiO2 Sodium Potassium Chloride Carbon Dioxide Anion Gap BUN Creatinine GFR Calculation BUN/Creatinine Ratio Glucose POC Glucose Calculated Osmolality Lactic Acid 7.7 H Calcium Magnesium Total Bilirubin AST ALT Alkaline Phosphatase Total Creatine Kinase CK-MB (CK-2) CK and CKMB Interp Troponin I B-Natriuretic Peptide Total Protein Albumin Globulin Albumin/Globulin Ratio Amylase 85 Lipase 85.0 Urine Color Urine Appearance Urine pH Ur Specific [place] Urine Protein Urine Glucose (UA) Urine Ketones Urine Blood Urine Nitrate Urine Bilirubin Urine Urobilinogen Urine Leukocytes Urine RBC Urine WBC Ur Squamous Epith Cells Hyaline Casts Urine Mucus Ur Culture Indicated? 03/27/17 03/27/17 03/27/17 17:08 17:08 16:55 WBC RBC Hgb Hct MCV MCH MCHC RDW Plt Count MPV Neut % (Auto) Lymph % (Auto) [place] % (Auto) Eos % (Auto) Baso % (Auto) Neut # (Auto) Lymph # (Auto) [place] # (Auto) Eos # (Auto) Baso # (Auto) Immature Gran % Nucleated RBC % Immature Gran # Nucleated RBCs # INR PT Patient/Control Mix Fibrinogen Circ Anticoag PTT ABG pH ABG pCO2 ABG pO2 ABG HCO3 ABG Total CO2 ABG O2 Saturation ABG Base Excess FiO2 Sodium 140 Potassium 5.4 H Chloride 101 Carbon Dioxide 24 Anion Gap 20.4 H BUN 38 H Creatinine 3.00 H GFR Calculation 32 BUN/Creatinine Ratio 12.00 Glucose 122 H POC Glucose Calculated Osmolality 288.4 Lactic Acid Calcium 8.4 L Magnesium 2.8 H Total Bilirubin 2.90 H AST 299 H ALT 137 H Alkaline Phosphatase 187 H Total Creatine Kinase 428 H D CK-MB (CK-2) 37.8 H D CK and CKMB Interp 8.8 Troponin I 8.390 H D B-Natriuretic Peptide 1708 H Total Protein 6.5 Albumin 2.9 L Globulin 3.6 H Albumin/Globulin Ratio 0.8 L Amylase Lipase Urine Color Urine Appearance Urine pH Ur Specific [place] Urine Protein Urine Glucose (UA) Urine Ketones Urine Blood Urine Nitrate Urine Bilirubin Urine Urobilinogen Urine Leukocytes Urine RBC Urine WBC Ur Squamous Epith Cells Hyaline Casts Urine Mucus Ur Culture Indicated? 03/27/17 03/27/17 03/27/17 16:55 16:55 16:55 WBC 12.0 D RBC 6.49 H Hgb 20.2 H* D Hct 61.2 H* D MCV 94.3 MCH 31 MCHC 33.0 RDW 16.7 Plt Count 158 D MPV 10.7 Neut % (Auto) 82.7 H Lymph % (Auto) 11.9 L [place] % (Auto) 4.1 Eos % (Auto) 0.1 Baso % (Auto) 0.3 Neut # (Auto) 10.0 H Lymph # (Auto) 1.4 [place] # (Auto) 0.5 Eos # (Auto) 0.0 Baso # (Auto) 0.0 Immature Gran % 0.9 Nucleated RBC % 0.0 Immature Gran # 0.11 Nucleated RBCs # 0.00 INR 1.9 PT Patient/Control Mix 20.9 Fibrinogen 278 Circ Anticoag PTT 45.5 H D ABG pH ABG pCO2 ABG pO2 ABG HCO3 ABG Total CO2 ABG O2 Saturation ABG Base Excess FiO2 Sodium Potassium Chloride Carbon Dioxide Anion Gap BUN Creatinine GFR Calculation BUN/Creatinine Ratio Glucose POC Glucose Calculated Osmolality Lactic Acid Calcium Magnesium Total Bilirubin AST ALT Alkaline Phosphatase Total Creatine Kinase CK-MB (CK-2) CK and CKMB Interp Troponin I B-Natriuretic Peptide Total Protein Albumin Globulin Albumin/Globulin Ratio Amylase Lipase Urine Color Urine Appearance Urine pH Ur Specific [place] Urine Protein Urine Glucose (UA) Urine Ketones Urine Blood Urine Nitrate Urine Bilirubin Urine Urobilinogen Urine Leukocytes Urine RBC Urine WBC Ur Squamous Epith Cells Hyaline Casts Urine Mucus Ur Culture Indicated? 03/27/17 03/27/17 03/27/17 12:54 12:14 10:49 WBC RBC Hgb Hct MCV MCH MCHC RDW Plt Count MPV Neut % (Auto) Lymph % (Auto) [place] % (Auto) Eos % (Auto) Baso % (Auto) Neut # (Auto) Lymph # (Auto) [place] # (Auto) Eos # (Auto) Baso # (Auto) Immature Gran % Nucleated RBC % Immature Gran # Nucleated RBCs # INR 1.5 PT Patient/Control Mix 15.7 Fibrinogen Circ Anticoag PTT ABG pH 7.223 L ABG pCO2 45.4 ABG pO2 142.0 H ABG HCO3 17.1 L ABG Total CO2 16.1 L ABG O2 Saturation 98.9 ABG Base Excess -9.5 L FiO2 Sodium Potassium Chloride Carbon Dioxide Anion Gap BUN Creatinine GFR Calculation BUN/Creatinine Ratio Glucose POC Glucose Calculated Osmolality Lactic Acid Calcium Magnesium Total Bilirubin AST ALT Alkaline Phosphatase Total Creatine Kinase CK-MB (CK-2) CK and CKMB Interp Troponin I B-Natriuretic Peptide Total Protein Albumin Globulin Albumin/Globulin Ratio Amylase Lipase Urine Color Neela Urine Appearance Cloudy Urine pH 5.0 Ur Specific [place] 1.033 Urine Protein >=500 Urine Glucose (UA) 50 Urine Ketones Negative Urine Blood Moderate Urine Nitrate Negative Urine Bilirubin Negative Urine Urobilinogen < 2.0 H Urine Leukocytes Negative Urine RBC 71 Urine WBC 79 Ur Squamous Epith Cells Occasional Hyaline Casts 4 Urine Mucus Occasional Ur Culture Indicated? Results to follow 03/27/17 03/27/17 03/27/17 10:32 10:22 07:44 WBC RBC Hgb Hct MCV MCH MCHC RDW Plt Count MPV Neut % (Auto) Lymph % (Auto) [place] % (Auto) Eos % (Auto) Baso % (Auto) Neut # (Auto) Lymph # (Auto) [place] # (Auto) Eos # (Auto) Baso # (Auto) Immature Gran % Nucleated RBC % Immature Gran # Nucleated RBCs # INR PT Patient/Control Mix Fibrinogen Circ Anticoag PTT ABG pH 7.269 L ABG pCO2 45.0 ABG pO2 76.9 L ABG HCO3 18.9 L ABG Total CO2 16.9 L ABG O2 Saturation 92.8 L ABG Base Excess -6.9 L FiO2 100.00 Sodium Potassium Chloride Carbon Dioxide Anion Gap BUN Creatinine GFR Calculation BUN/Creatinine Ratio Glucose POC Glucose 122 H 90 Calculated Osmolality Lactic Acid Calcium Magnesium Total Bilirubin AST ALT Alkaline Phosphatase Total Creatine Kinase CK-MB (CK-2) CK and CKMB Interp Troponin I B-Natriuretic Peptide Total Protein Albumin Globulin Albumin/Globulin Ratio Amylase Lipase Urine Color Urine Appearance Urine pH Ur Specific [place] Urine Protein Urine Glucose (UA) Urine Ketones Urine Blood Urine Nitrate Urine Bilirubin Urine Urobilinogen Urine Leukocytes Urine RBC Urine WBC Ur Squamous Epith Cells Hyaline Casts Urine Mucus Ur Culture Indicated? 03/27/17 03/27/17 03/26/17 04:35 04:35 21:06 WBC 5.2 RBC 5.66 H Hgb 17.2 Hct 53.1 H MCV 93.8 MCH 30 MCHC 32.4 RDW 15.1 Plt Count 131 MPV 10.7 Neut % (Auto) 49.5 Lymph % (Auto) 36.7 [place] % (Auto) 8.9 Eos % (Auto) 4.1 Baso % (Auto) 0.6 Neut # (Auto) 2.6 Lymph # (Auto) 1.9 [place] # (Auto) 0.5 Eos # (Auto) 0.2 Baso # (Auto) 0.0 Immature Gran % 0.2 Nucleated RBC % 0.0 Immature Gran # 0.01 Nucleated RBCs # 0.00 INR PT Patient/Control Mix Fibrinogen Circ Anticoag PTT ABG pH ABG pCO2 ABG pO2 ABG HCO3 ABG Total CO2 ABG O2 Saturation ABG Base Excess FiO2 Sodium 141 Potassium 4.0 Chloride 100 Carbon Dioxide 32 Anion Gap 13.0 BUN 31 H Creatinine 2.40 H GFR Calculation 41 BUN/Creatinine Ratio 12.00 Glucose 65 L POC Glucose Calculated Osmolality 285.3 Lactic Acid Calcium 8.9 Magnesium 2.2 Total Bilirubin AST ALT Alkaline Phosphatase Total Creatine Kinase 77 CK-MB (CK-2) 3.6 CK and CKMB Interp Troponin I 0.044 B-Natriuretic Peptide Total Protein Albumin Globulin Albumin/Globulin Ratio Amylase Lipase Urine Color Urine Appearance Urine pH Ur Specific [place] Urine Protein Urine Glucose (UA) Urine Ketones Urine Blood Urine Nitrate Urine Bilirubin Urine Urobilinogen Urine Leukocytes Urine RBC Urine WBC Ur Squamous Epith Cells Hyaline Casts Urine Mucus Ur Culture Indicated? 03/26/17 18:43 WBC RBC Hgb Hct MCV MCH MCHC RDW Plt Count MPV Neut % (Auto) Lymph % (Auto) [place] % (Auto) Eos % (Auto) Baso % (Auto) Neut # (Auto) Lymph # (Auto) [place] # (Auto) Eos # (Auto) Baso # (Auto) Immature Gran % Nucleated RBC % Immature Gran # Nucleated RBCs # INR PT Patient/Control Mix Fibrinogen Circ Anticoag PTT ABG pH ABG pCO2 ABG pO2 ABG HCO3 ABG Total CO2 ABG O2 Saturation ABG Base Excess FiO2 Sodium Potassium Chloride Carbon Dioxide Anion Gap BUN Creatinine GFR Calculation BUN/Creatinine Ratio Glucose POC Glucose 177 H Calculated Osmolality Lactic Acid Calcium Magnesium Total Bilirubin AST ALT Alkaline Phosphatase Total Creatine Kinase CK-MB (CK-2) CK and CKMB Interp Troponin I B-Natriuretic Peptide Total Protein Albumin Globulin Albumin/Globulin Ratio Amylase Lipase Urine Color Urine Appearance Urine pH Ur Specific [place] Urine Protein Urine Glucose (UA) Urine Ketones Urine Blood Urine Nitrate Urine Bilirubin Urine Urobilinogen Urine Leukocytes Urine RBC Urine WBC Ur Squamous Epith Cells Hyaline Casts Urine Mucus Ur Culture Indicated? DS: Provider Date of admission: 03/23/17 15:52 Primary care physician: . No PCP Attending physician on admission: Mack Rm MD Consults: 03/23/17 17:19 Consult to Pharmacy [CONS] Routine Reason for Pharmacy Consult: Adjust Meds Renal Funct 03/25/17 10:20 Consult to Physician [CONS] Routine Comment: Consulting Provider: Cardiology - [facility] Consulting Provider Notified: Yes When should Consulting Provider be notified: Now Consult to Specialist Group: Cardiology When should Consulting Provider be notified: Now Person Notified: GILBERT Date Notified: 03/25/17 Time Notified: 10:44 03/27/17 12:34 Consult to Cardiac Rehabilitation [CONS] Routine Reason for Cardiac Rehabilitation: Appt Out Pt Cardiac Rehab Consult Comment: code blue; mi 03/27/17 13:00 Consult to Physician [CONS] Routine Comment: (On-call pulm is fine) Vent mgmt, post code Consulting Provider: Ghulam Dutton Consulting Provider Notified: Yes Person Notified: Bruno Date Notified: 03/27/17 Time Notified: 15:15 03/27/17 15:16 Consult to Physician [CONS] Routine Comment: therapeutic hypothermia and ?anoxic brain injury Consulting Provider: Layo Sharif When should Consulting Provider be notified: Now Consult Notification Comment: Office nurse said consult information cannot be taken until Friday03/31/17. Discharging clinician: Umer Celestin MD Expected date of discharge: 03/27/17
[2017-03-27] MEDS: FUROSEMIDE 80 MG TABLET PO SCH (18:51)
[2017-03-27] MEDS ORDERED: MINERAL OIL/PETROLATUM OPH OINT 3.5 GM TUBE BOTH EYES SCH (21:00)
== END 2017-03-27 17:30 | disposition expired | DRG 250 ==
LOC: EDBD → EDUNIT# → N.ED 12:51 → N.EDINP 15:52 → SUATTDRO 15:52 → N.4E 17:10 → N.ICU 03-27 10:20
PROVIDERS: ADMIT Internal Medicine; ATTEND Family Medicine